=== PATIENT | female | born 1940 | race Caucasian/White ===

== ENCOUNTER → 2016-07-14 | Outpatient (CLI) | payer MEDICARE ==
[~2016-07-14] MED LIST: ASPI1TAB91 PO; ASPI81TA11 PO; ATOR40TA16 PO; CART120C PO; CENTTAB PO; CENTTAB9 PO; CLOP75TA PO; CO Q100C9 PO; COQ-100C5 OR; COQ1200C PO; DENO60P SC; DILT-60 PO; DILT120C49 PO; FLUT1SPR5 EACH NARE; HYDR-3533 PO; LIPI40TA PO; MULTTAB67 PO; NIAC500T5 PO; PANT40TA3 PO; PROT40TA PO; TYLE3 PO; ULTR50TA PO; ZOFR4TAB3 SL
[2016-07-14 13:52] LABS: HDL CHOLESTEROL 44.8 MG/DL (40.0-60.0); INDIRECT BILIRUBIN 0.3 MG/DL (0.0-0.8); TOTAL BILIRUBIN ADULT 0.4 MG/DL (0.2-1.0)
== END ==
LOC: PLAB 10:50
PROVIDERS: ATTEND Internal Medicine Interventional Cardiology
DX: E78.2 Mixed hyperlipidemia (principal); Z79.899 Other long term (current) drug therapy
CPT/HCPCS: 36415; 80061; 80076

== ENCOUNTER 2016-07-27 15:12 | Observation (INO) | payer MEDICARE ==
[~2016-07-27] VITALS: Ht 149.9 cm; Wt 56.0 kg
[~2016-07-27 15:12] MED LIST changes: -ASPI1TAB91 PO; -ATOR40TA16 PO; -CART120C PO; -CENTTAB PO; -CO Q100C9 PO; -COQ1200C PO; -DILT-60 PO; -FLUT1SPR5 EACH NARE; -MULTTAB67 PO; -NIAC500T5 PO; -PANT40TA3 PO
[2016-07-27 15:21] VITALS: BP 148/66; PULSE 89; RESP 21; TEMP 98; O2SAT 93
[2016-07-27] MEDS ORDERED: SODIUM CHLORID 0.9% 500 ML INJ 500 ML IV ONE (15:30)
[2016-07-27 15:35] VITALS: BP_SYST 118; BP_SYST 133; BP_DIAS 57; BP_DIAS 63
[2016-07-27 15:56] LABS: AUTOMATED NEUTROPHIL # 4.8 TH/MM3 (1.8-7.7); BASOPHIL # 0.1 TH/MM3 (0-0.2); EOSINOPHIL # 0.1 TH/MM3 (0-0.4); EOSINOPHIL % 1.4 % (0.0-4.0); HEMATOCRIT 38.3 % (35.0-46.0); HEMO FLAGS DIFF FINAL; LYMPHOCYTE # 1.3 TH/MM3 (1.0-4.8); MEAN CELL VOLUME 90.8 FL (80.0-100.0); MEAN CORPUSCULAR HEMOGLOBIN 29.8 PG (27.0-34.0); MEAN CORPUSCULAR HGB CONC 32.8 % (32.0-36.0); MONO % 7.3 % (0.0-8.0); NEUT % 71.3 % (16.0-70.0); PLATELET COUNT 197 TH/MM3 (150-450); RED BLOOD COUNT 4.21 MIL/MM3 (4.00-5.30); WHITE BLOOD COUNT 6.7 TH/MM3 (4.0-11.0)
[2016-07-27 16:00] VITALS: BP 130/61; PULSE 80; RESP 21; O2SAT 96
[2016-07-27 16:09] LABS: APTT (PATIENT) 27.3 SEC (24.3-30.1); INTERNATIONAL NORMALIZED RATIO 0.9 RATIO; PROTHROMBIN TIME - PATIENT 10.4 SEC (9.8-11.6)
--- NOTE | 2016-07-27 16:15 | PD ---
HPI Chief Complaint: Chest Pain Time Seen by Provider: 16:10 Travel History International Travel<30 days: No Contact w/Intl Traveler<30days: No Traveled to known affect area: No History of Present Illness HPI 76-year-old female that presents to the ED for evaluation of lower midsternal chest pain that she's had for a couple hours. Per patient she was doing yard work when he started. Per patient she follows with Dr. Ortiz for cardiology. Per patient she just saw her yesterday and everything came back normal. She has an appointment in 6 months from now. Per patient the pain started all of a sudden. Per patient he was sharp causing some shortness of breath. She states that she's never had pain like that before. She states that she took a nitroglycerin at home and this helped her pain but she started getting hypotensive. She called the ambulance on the dorsum fluids as well as Zofran and 2 other doses of nitroglycerin with relief of her symptoms. Now she feels is dizzy and somewhat lightheaded but the pain appears to have subsided. Per patient the pain wasn't constant but comes and goes. She does have a history of a stent placed in 2011. She denies any abdominal pain. No nausea or vomiting. Initially she told his mother be related to her gallbladder out that she's never had a bladder issues. She does take an aspirin. She does not take any blood thinners. She has no allergies to medication. She states that the pain was severe 7 out of 10. No radiation of the pain. PFSH Past Medical History Arthritis: Yes Blood Disorders: No Cancer: Yes (SKIN, BASAL CELL CA.) Cardiac Catheterization: Yes (MARCH 2012) Cardiovascular Problems: Yes (1 STENT) High Cholesterol: Yes Chemotherapy: No Coronary Artery Disease: Yes Diminished Hearing: Yes (BILATERAL HEARING AIDS) Endocrine: No GERD: Yes Genitourinary: No Hiatal Hernia: Yes Immune Disorder: No Implanted Vascular Access Dvce: Yes (STENT) Musculoskeletal: Yes (BACK PAIN) Neurologic: No Psychiatric: No Reproductive: No Respiratory: No Immunizations Current: Yes Radiation Therapy: No Influenza Vaccination: Yes ?: Not Menopausal: Yes : 5 Para: 4 : 1 Past Surgical History Body Medical Devices: breast impants Coronary Stent: Yes (Mar 2012) Gynecologic Surgery: Yes ( breast implants d and c) Joint Replacement: Yes (LEFT TOTAL HIP) Mastectomy: Yes (RIGHT BREAST LUMPECTOMY) Tonsillectomy: Yes Other Surgery: Yes (BREAST AUGMENTATION) Social History Alcohol Use: Yes (RARELY) Tobacco Use: No (QUIT 1996) Substance Use: No Allergies-Medications (Allergen,Severity, Reaction): Coded Allergies: No Known Allergies (Verified , 03/07/14) Reported Meds & Prescriptions Reported Meds & Active Scripts Active Reported Pantoprazole (Pantoprazole Sodium) 40 Mg Tab 40 Mg PO DAILY Centrum Silver (Multiple Vitamins W/ Minerals) 1 Tab 1 Tab PO DAILY Niacin 500 Mg Tab 500 Mg PO DAILY Flonase Nasal [place] (Fluticasone Nasal [place]) 50 Mcg/Act [place] 1 [place] EACH NARE DAILY PRN Diltiazem CD 24 HR 120 Mg Caper 120 Mg PO DAILY Coq10 (Coenzyme Q10 (Ubidecarenone)) 200 Mg Cap 200 Mg PO DAILY Atorvastatin (Atorvastatin Calcium) 40 Mg Tab 40 Mg PO HS Aspirin Adult Low Strength (Aspirin) 81 Mg Tabdr 162 Mg PO DAILY Review of Systems Except as stated in HPI: all other systems reviewed are Neg Physical Exam Narrative GENERAL: SKIN: Warm and dry. HEAD: Atraumatic. Normocephalic. EYES: Pupils equal and round. No scleral icterus. No injection or drainage. ENT: No nasal bleeding or discharge. Mucous membranes pink and moist. Tongue is midline. No uvula deviation. NECK: Trachea midline. No JVD. CARDIOVASCULAR: Regular rate and rhythm. No murmurs, S3, S4. RESPIRATORY: No accessory muscle use. Clear to auscultation. Breath sounds equal bilaterally. GASTROINTESTINAL: Abdomen soft, non-tender, nondistended. Hepatic and splenic margins not palpable. MUSCULOSKELETAL: Extremities without clubbing, cyanosis, or edema. No obvious deformities. Full range of motion of the upper and lower extremities bilaterally. 2+ pulses bilaterally. NEUROLOGICAL: Awake and alert. No obvious cranial nerve deficits. Motor grossly within normal limits. Five out of 5 muscle strength in the arms and legs. Normal speech. PSYCHIATRIC: Appropriate mood and affect; insight and judgment normal. Data Data Last Documented VS Vital Signs Date Time Temp Pulse Resp B/P Pulse Ox O2 Delivery O2 Flow Rate FiO2 07/27/16 15:35 133/63 118/57 07/27/16 15:21 98.0 89 21 93 Orders Electrocardiogram (07/27/16:29) Ckmb (Isoenzyme) Profile (07/27/16 15:29) Complete Blood Count With Diff (07/27/16:29) Comprehensive Metabolic Panel (07/27/16:) Magnesium (Mg) (07/27/16:29) Prothrombin Time / Inr (Pt) (07/27/16:29) Act Partial Throm Time (Ptt) (07/27/16:29) Troponin I (07/27/16:) Lipase (07/27/16:) Chest, Single Ap (07/27/16:) Ecg Monitoring (07/27/16:) Bilateral Bp Monitoring (07/27/16:) Iv Access Insert/Monitor (07/27/16:) Oximetry (07/27/16:) Oxygen Administration (07/27/16:) Sodium Chlorid 0.9% 500 Ml Inj (Ns 500 M (07/27/16 15:30) Admit Order (Ed Use Only) (07/27/16 17:11) Labs Laboratory Tests Test 07/27/16 15:45 White Blood Count 6.7 TH/MM3 Red Blood Count 4.21 MIL/MM3 Hemoglobin 12.5 GM/DL Hematocrit 38.3 % Mean Corpuscular Volume 90.8 FL Mean Corpuscular Hemoglobin 29.8 PG Mean Corpuscular Hemoglobin 32.8 % Concent Red Cell Distribution Width 15.0 % Platelet Count 197 TH/MM3 Mean Platelet Volume 7.4 FL Neutrophils (%) (Auto) 71.3 % Lymphocytes (%) (Auto) 19.0 % Monocytes (%) (Auto) 7.3 % Eosinophils (%) (Auto) 1.4 % Basophils (%) (Auto) 1.0 % Neutrophils # (Auto) 4.8 TH/MM3 Lymphocytes # (Auto) 1.3 TH/MM3 Monocytes # (Auto) 0.5 TH/MM3 Eosinophils # (Auto) 0.1 TH/MM3 Basophils # (Auto) 0.1 TH/MM3 CBC Comment DIFF FINAL Differential Comment Prothrombin Time 10.4 SEC Prothromb Time International 0.9 RATIO Ratio Activated Partial 27.3 SEC Thromboplast Time Sodium Level 143 MEQ/L Potassium Level 3.9 MEQ/L Chloride Level 108 MEQ/L Carbon Dioxide Level 27.4 MEQ/L Anion Gap 8 MEQ/L Blood Urea Nitrogen 11 MG/DL Creatinine 0.73 MG/DL Estimat Glomerular Filtration 77 ML/MIN Rate Random Glucose 102 MG/DL Calcium Level 8.2 MG/DL Magnesium Level 2.0 MG/DL Total Bilirubin 0.5 MG/DL Aspartate Amino Transf 90 U/L (AST/SGOT) Alanine Aminotransferase 53 U/L (ALT/SGPT) Alkaline Phosphatase 114 U/L Total Creatine Kinase 66 U/L Troponin I LESS THAN 0.02 NG/ML Total Protein 6.1 GM/DL Albumin 3.4 GM/DL Lipase 212 U/L MDM Medical Decision Making Medical Screen Exam Complete: Yes Emergency Medical Condition: Yes Medical Record Reviewed: Yes Interpretation(s) EKG shows sinus rhythm with no sign of acute ischemia or arrhythmia read by me and attending. Differential Diagnosis Chest pain versus atypical chest pain versus liver disease versus gallbladder issues versus ACS Narrative Course 76-year-old female that presents to the ED for evaluation of chest pain. Patient was properly examined and was found to have signs and symptoms concerning for chest pain. At this time labs and imaging recommended. Patient' s agreement with plan. Patient symptomatically at this time. Labs and imaging showed no sign of acute disease. At this time because of her risk factors including prior CAD we recommend admission to the Chest pain center. She agrees to this. patient was admitted to the chest pain center. Procedures EKG Prior to Arrival: No Diagnosis Primary Impression: Chest pain in adult Admitting Information Admitting Physician Requests: Observation Kameron Zambrano Jul 27, 2016 16:15 including prior CAD we recommend admission to the Chest pain center. Procedures EKG Prior to Arrival: No Diagnosis Primary Impression: Chest pain in adult Admitting Information Admitting Physician Requests: Observation Kameron Zambrano Jul 27, 2016 16:15
--- NOTE | 2016-07-27 16:17 | RADRPT ---
EXAM DATE/TIME: 07/27/2016 15:34 [facility] COMPARISON: No previous studies available for comparison. INDICATIONS : Chest pain today. MEDICAL HISTORY : None. SURGICAL HISTORY : cardiac stent 2011 ENCOUNTER: Initial ACUITY: 1 day PAIN SCORE: 8/10 LOCATION: Bilateral lower chest FINDINGS: A single view of the chest demonstrates the lungs to be symmetrically aerated without evidence of mas s, infiltrate or effusion. The cardiomediastinal contours are unremarkable. Mild curvature of the t horacolumbar spine convex towards the left. Bilateral breast implants are calcified. Gaseous disten tion of the stomach.. CONCLUSION: No infiltrates seen. No evidence of pleural effusion. Randal Saab MD on July 27, 2016 at 16:14 Board Certified Radiologist. This report was verified electronically.
[2016-07-27 16:28] LABS: ALT (GPT) 53 U/L (10-53); ANION GAP 8 MEQ/L (5-15); AST (GOT) 90 U/L (15-37); BICARBONATE 27.4 MEQ/L (21.0-32.0); BLOOD UREA NITROGEN 11 MG/DL (7-18); CHLORIDE 108 MEQ/L (98-107); GLOMERULAR FILTRATION RATE 77 ML/MIN (>89); POTASSIUM 3.9 MEQ/L (3.5-5.1); SODIUM (NA) 143 MEQ/L (136-145)
[2016-07-27 16:31] LABS: ALKALINE PHOSPHATASE 114 U/L (45-117); TOTAL BILIRUBIN ADULT 0.5 MG/DL (0.2-1.0)
[2016-07-27] MEDS ORDERED: NIAC500T5 PO (16:37)
[2016-07-27] MEDS ORDERED: PANT40TA3 PO (16:37)
[2016-07-27] MEDS ORDERED: DILT-60 PO (16:37)
[2016-07-27] MEDS ORDERED: ATOR40TA16 PO (16:37)
[2016-07-27] MEDS ORDERED: COQ1200C PO (16:37)
[2016-07-27] MEDS ORDERED: CENTTAB PO (16:37)
[2016-07-27] MEDS ORDERED: ASPI1TAB91 PO (16:37)
[2016-07-27] MEDS ORDERED: FLUT1SPR5 EACH NARE (16:37)
[2016-07-27 16:46] LABS: CREATINE KINASE 66 U/L (26-192)
[2016-07-27] MEDS ORDERED: SODIUM CHLORIDE 0.9% FLUSH 10 ML FLUSH IV FLUSH PRN (17:15)
[2016-07-27 18:57] LABS: CREATINE KINASE 66 U/L (26-192)
[2016-07-27] MEDS: SODIUM CHLORIDE 0.9% FLUSH 10 ML FLUSH IV FLUSH SCH (22:02)
[2016-07-27 22:45] LABS: CREATINE KINASE 63 U/L (26-192)
[2016-07-28 00:07] VITALS: BP 134/64; PULSE 75; RESP 18; TEMP 95.8; O2SAT 96
[2016-07-28 04:04] VITALS: BP 128/60; PULSE 55; RESP 20; TEMP 98.6
[2016-07-28 06:09] VITALS: PULSE 77
[2016-07-28 08:08] VITALS: BP 165/74; PULSE 66; RESP 18; TEMP 96.9; O2SAT 97
[2016-07-28] MEDS ORDERED: MULTIVITAMINS/MINERALS THERAPEUTIC TAB PO SCH (09:00)
[2016-07-28] MEDS ORDERED: ASPIRIN EC 81 MG TABEC PO SCH (09:00)
[2016-07-28] MEDS ORDERED: PANTOPRAZOLE SOD 40 MG DELAYED RELEASE TAB PO SCH (09:00)
[2016-07-28] MEDS ORDERED: DILTIAZEM-CD 120 MG CAP ER PO SCH (09:00)
[2016-07-28] MEDS: NIACIN 500 MG EXTENDED RELEASE TAB PO SCH ×2 (09:00→09:57)
[2016-07-28 09:06] VITALS: PULSE 70
--- NOTE | 2016-07-28 09:14 | HHI.HP ---
[facility] Primary Care Physician Lay Gibson MD Chief Complaint Chest pain History of Present Illness This is a 76-year-old female with history of CAD with history of stenting of the mid LAD and angioplasty of ostium diagonal branch [place] [address] Wilkinson. She presents with a complaint of chest discomfort that began yesterday afternoon. She points to the epigastric region. She states it was a dull discomfort. She thought it may be related to her heart initially and took a nitroglycerin. She then began to feel nauseous and faint and checked her blood pressure found her blood pressure with a systolic of 77. At that point she became more concerned and called 911. Upon arrival they gave IV fluids and more nitroglycerin and she felt better. The discomfort lasted about an hour. She states that this does not feel similar symptoms which needed a stent in 2012. With that episode she was having discomfort in her left arm whenever she exerted herself. The symptoms have not recurred since her stenting. She saw her knockdown worker 2 days ago for a checkup and is scheduled for a stress test in 6 months. She believes her last stress test was about a year and a half ago. Denies recent illnesses. Denies fevers or chills. Review of Systems General: Patient denies fevers, chills recent, and recent travel HEENT: Patient denies headache, sore throat, difficulty swallowing. Cardiovascular: Has the chest discomfort as mentioned above. Denies sensation of heart beating rapidly or irregularly. No syncope. Denies diaphoresis. Respiratory: Denies shortness of breath or inspirational chest discomfort. Denies coughing wheezing or hemoptysis. GI: When she discusses her chest discomfort she points to the epigastric region. Patient denies nausea, vomiting, diarrhea, and bloody stools. Musculoskeletal: She complains of left shoulder discomfort that she is having some time. She attributes this to perform rotator cuff. Denies swelling in the joints. Denies calf pain or edema. Neurovascular: Patient denies numbness, tingling, weakness in extremities. Denies headache. Endocrine: Denies polyuria and polydipsia. Hematologic: Denies easy bruising. Skin: Denies rash or itching. Past Family Social History Allergies: Coded Allergies: No Known Allergies (Verified , 03/07/14) Past Medical History CAD with stenting and angioplasty in [address]. Elsakr. Hyperlipidemia, hypertension, GERD. Denies diabetes. Past Surgical History Heart catheterization with stenting and angioplasty in 2012. Right breast lumpectomy, breast augmentation, tonsillectomy, total left hip. Reported Medications Reported Meds & Active Scripts Active Reported Pantoprazole (Pantoprazole Sodium) 40 Mg Tab 40 Mg PO DAILY Centrum Silver (Multiple Vitamins W/ Minerals) 1 Tab 1 Tab PO DAILY Niacin 500 Mg Tab 500 Mg PO DAILY Flonase Nasal [place] (Fluticasone Nasal [place]) 50 Mcg/Act [place] 1 [place] EACH NARE DAILY PRN Diltiazem CD 24 HR 120 Mg Caper 120 Mg PO DAILY Coq10 (Coenzyme Q10 (Ubidecarenone)) 200 Mg Cap 200 Mg PO DAILY Atorvastatin (Atorvastatin Calcium) 40 Mg Tab 40 Mg PO HS Aspirin Adult Low Strength (Aspirin) 81 Mg Tabdr 162 Mg PO DAILY Active Ordered Medications Current Medications Medications (Trade) Dose Ordered Sig/[place] Route Start Time Stop Time Status Last Admin (NS Flush) 2 ml UNSCH PRN IV FLUSH 07/27/16 17:15 (NS Flush) 2 ml BID IV FLUSH 07/27/16 21:00 07/27/16 22:02 (Lipitor) 40 mg HS PO 07/28/16 21:00 (Cardizem Cd) 120 mg DAILY PO 07/28/16 09:00 (Protonix) 40 mg DAILY PO 07/28/16 09:00 (Theragran M Tab) 1 tab DAILY PO 07/28/16 09:00 (Slo-Niacin) 500 mg DAILY PO 07/28/16 09:00 (Ecotrin Ec) 162 mg DAILY PO 07/28/16 09:00 Family History There is family history of CAD. Social History Patient does not smoke, drink alcohol, or use illicit drugs. Physical Exam Vital Signs Vital Signs Date Time Temp Pulse Resp B/P Pulse Ox O2 Delivery O2 Flow Rate FiO2 07/28/16 08:08 96.9 66 18 165/74 97 07/28/16 06:09 77 07/28/16 04:04 98.6 55 20 128/60 07/28/16 03:18 21 07/28/16 00:07 95.8 75 18 134/64 96 07/27/16 16:00 80 21 130/61 96 Room Air 07/27/16 15:35 133/63 118/57 07/27/16 15:21 98.0 89 21 148/66 93 Physical Exam GENERAL: This is a well-nourished, well-developed patient, in no apparent distress. Patient speaks in clear complete sentences. Patient is pleasant. HEENT: Head is atraumatic and normocephalic. Neck is supple without lymphadenopathy and trachea is midline. No JVD or carotid bruits. CARDIOVASCULAR: Regular rate and rhythm without murmurs, gallops, or rubs. RESPIRATORY: Clear to auscultation. Breath sounds equal bilaterally. No wheezes , rales, or rhonchi. Chest wall is nontender. No use of accessory muscles. GASTROINTESTINAL: Abdomen is nontender, nondistended. Abdomen soft. No obvious pulsatile mass or bruit. No CVA tenderness. Strong femoral pulses bilaterally. Normal bowel sounds in all quadrants. MUSCULOSKELETAL: Patient is moving upper and lower extremities freely. No calf tenderness or edema, no Homans sign. Strong pulses in upper and lower extremities. NEUROLOGICAL: Patient is alert and oriented. Cranial nerves 2-12 are grossly intact. No focal deficits and speech is clear. SKIN: No rash and turgor is normal. Laboratory Laboratory Tests Test 07/27/16 07/27/16 07/27/16 15:45 18:26 22:00 White Blood Count 6.7 Red Blood Count 4.21 Hemoglobin 12.5 Hematocrit 38.3 Mean Corpuscular Volume 90.8 Mean Corpuscular Hemoglobin 29.8 Mean Corpuscular Hemoglobin 32.8 Concent Red Cell Distribution Width 15.0 Platelet Count 197 Mean Platelet Volume 7.4 Neutrophils (%) (Auto) 71.3 Lymphocytes (%) (Auto) 19.0 Monocytes (%) (Auto) 7.3 Eosinophils (%) (Auto) 1.4 Basophils (%) (Auto) 1.0 Neutrophils # (Auto) 4.8 Lymphocytes # (Auto) 1.3 Monocytes # (Auto) 0.5 Eosinophils # (Auto) 0.1 Basophils # (Auto) 0.1 CBC Comment DIFF FINAL Differential Comment Prothrombin Time 10.4 Prothromb Time International 0.9 Ratio Activated Partial 27.3 Thromboplast Time Sodium Level 143 Potassium Level 3.9 Chloride Level 108 Carbon Dioxide Level 27.4 Anion Gap 8 Blood Urea Nitrogen 11 Creatinine 0.73 Estimat Glomerular Filtration 77 Rate Random Glucose 102 Calcium Level 8.2 Magnesium Level 2.0 Total Bilirubin 0.5 Aspartate Amino Transf 90 (AST/SGOT) Alanine Aminotransferase 53 (ALT/SGPT) Alkaline Phosphatase 114 Total Creatine Kinase 66 66 63 Troponin I LESS THAN 0.02 LESS THAN 0.02 LESS THAN 0.02 Total Protein 6.1 Albumin 3.4 Lipase 212 Result Diagram: 07/27/16 1545 07/27/16 1545 Imaging Last 24 hours Impressions Chest X-Ray 07/27/16 1529 Signed Impressions: Service Date/Time: Wednesday, July 27, 2016 15:34 - CONCLUSION: No infiltrates seen. No evidence of pleural effusion. Randal Saab MD Course EKGs have sinus rhythm without significant ST segment depressions or elevations. Assessment and Plan Assessment and Plan * Chest pain: Patient has had serial cardiac enzymes and EKGs for ruling out purposes and will be evaluated by Dr. Coley of cardiology in the chest pain center. Also discussed the patient with her knockdown worker Dr. Wilkinson. He has requested that the may be discharged and he will follow her in the office. * CAD: Patient had serial cardiac enzymes and EKGs for ruling out purposes and will follow up with her knockdown worker. * Hypertension: Continue current medications. * Hyperlipidemia: Continue current medications. * GERD: Continue current medications. Patient is stable this time. She is agreeable to this plan. Theo Hamlin Jul 28, 2016 09:13
[2016-07-28] MEDS: SODIUM CHLORIDE 0.9% FLUSH 10 ML FLUSH IV FLUSH SCH (09:58)
--- NOTE | 2016-07-28 11:25 | EKG ---
Date Performed: 07/28/2016 Time Performed: 00:44:44 PTAGE: 76 years EKG: Sinus rhythm WITH OCCASIONAL SUPRAVENTRICULAR PREMATURE COMPLEXES LOW QRS VOLTAGE IN PRECORDIAL LEADS POSSIBLE RI GHT VENTRICULAR CONDUCTION DELAY BORDERLINE ECG INTERPRETATION BASED ON A DEFAULT AGE OF 39 YEARS NO PREVIOUS TRACING DOCTOR: Diaz Coley Interpretating Date/Time 07/28/2016 11:23:12
--- NOTE | 2016-07-28 11:25 | EKG ---
Date Performed: 07/27/2016 Time Performed: 21:53:10 PTAGE: 76 years EKG: Sinus rhythm POSSIBLE RIGHT VENTRICULAR CONDUCTION DELAY BORDERLINE ECG Left axis deviation PREVIOUS TRACING : 07/27/2016 18.28 Since previous tracing, no significant change noted DOCTOR: Diaz Coley Interpretating Date/Time 07/28/2016 11:25:07
--- NOTE | 2016-07-28 12:04 | HHI.DCPOC ---
Discharge Care Plan Diagnosis: (1) Chest pain (2) CAD (coronary artery disease) (3) H/O heart artery stent (4) Hypertension (5) Hyperlipidemia (6) GERD (gastroesophageal reflux disease) Goals to Promote Your Health * To prevent worsening of your condition and complications * To maintain your health at the optimal level Directions to Meet Your Goals Take your medications as prescribed Follow your dietary instruction Follow activity as directed Keep your appointments as scheduled Take your immunizations and boosters as scheduled If your symptoms worsen call your PCP, if no PCP go to Urgent Care Center or Emergency Room Smoking is Dangerous to Your Health. Avoid second hand smoke Call the 24-hour hour crisis hotline for domestic abuse at Theo Hamlin Jul 28, 2016 12:04
--- NOTE | 2016-07-28 13:07 | EKG ---
Date Performed: 07/27/2016 Time Performed: 18:28:22 PTAGE: 76 years EKG: Sinus rhythm BORDERLINE LEFT AXIS DEVIATION POSSIBLE RIGHT VENTRICULAR CONDUCTION DELAY BORDERLINE ECG PREVIOUS TRACING : 07/27/2016 15.29 Since previous tracing, no significant change noted DOCTOR: Diaz Coley Interpretating Date/Time 07/28/2016 13:06:25
--- NOTE | 2016-07-28 13:09 | EKG ---
Date Performed: 07/27/2016 Time Performed: 15:29:50 PTAGE: 76 years EKG: Sinus rhythm POSSIBLE RIGHT VENTRICULAR CONDUCTION DELAY BORDERLINE ECG PREVIOUS TRACING : 09/04/2013 15.36 Since previous tracing, no significant change noted DOCTOR: Diaz Coley Interpretating Date/Time 07/28/2016 13:08:28
[2016-07-28] MEDS ORDERED: ATORVASTATIN 40 MG TAB PO SCH (21:00)
== END 2016-07-28 12:50 | disposition home or self-care (01) ==
LOC: NEPC 15:12 → NEDA 17:13 → NEPHCDU 19:04
PROVIDERS: ADMIT Internal Medicine Cardiovascular Disease; ATTEND Internal Medicine Cardiovascular Disease
DX: R07.9 Chest pain, unspecified (principal); I25.10 Atherosclerotic heart disease of native coronary artery without angina pectoris; I10 Essential (primary) hypertension; E78.5 Hyperlipidemia, unspecified; K21.9 Gastro-esophageal reflux disease without esophagitis; R06.02 Shortness of breath; R42 Dizziness and giddiness; M19.90 Unspecified osteoarthritis, unspecified site; Z85.828 Personal history of other malignant neoplasm of skin; E78.00 Pure hypercholesterolemia, unspecified; K44.9 Diaphragmatic hernia without obstruction or gangrene; M54.9 Dorsalgia, unspecified; Z79.899 Other long term (current) drug therapy; Z95.5 Presence of coronary angioplasty implant and graft; R94.31 Abnormal electrocardiogram [ECG] [EKG]
CPT/HCPCS: 71010; 80053; 82550; 83690; 83735; 84484; 85025; 85610; 85730; 93005; 96374; 99285; G0378; J7040

== ENCOUNTER 2016-09-06 15:41 | Emergency (ER) | payer MEDICARE ==
[~2016-09-06] VITALS: Ht 154.9 cm; Wt 58.0 kg
[~2016-09-06 15:41] MED LIST changes: +ASPI1TAB91 PO; -ASPI81TA11 PO; +ATOR40TA16 PO; +CENTTAB PO; -CENTTAB9 PO; -CLOP75TA PO; -COQ-100C5 OR; +COQ1200C PO; -DENO60P SC; +DILT-60 PO; -DILT120C49 PO; +FLUT1SPR5 EACH NARE; -HYDR-3533 PO; -LIPI40TA PO; +NIAC500T5 PO; +PANT40TA3 PO; -PROT40TA PO; -TYLE3 PO; -ULTR50TA PO; -ZOFR4TAB3 SL
[2016-09-06 15:45] VITALS: BP 122/63; PULSE 78; RESP 16; TEMP 97.8; O2SAT 96
[2016-09-06] MEDS ORDERED: CART120C PO (16:11)
[2016-09-06] MEDS ORDERED: MULTTAB67 PO (16:11)
[2016-09-06] MEDS ORDERED: CO Q100C9 PO (16:11)
[2016-09-06] MEDS ORDERED: PROT40TA PO (16:11)
[2016-09-06] MEDS ORDERED: SODIUM CHLOR 0.9% 1000 ML INJ 1,000 ML IV SCH (16:24)
[2016-09-06] MEDS ORDERED: ONDANSETRON HCL 4 MG/2 ML VIAL IVP ONE (16:30)
[2016-09-06] MEDS ORDERED: SODIUM CHLORIDE 0.9% FLUSH 10 ML FLUSH IV FLUSH PRN (16:30)
[2016-09-06 16:40] VITALS: O2SAT 95
[2016-09-06 16:55] LABS: AUTOMATED NEUTROPHIL # 4.8 TH/MM3 (1.8-7.7); BASOPHIL # 0.1 TH/MM3 (0-0.2); EOSINOPHIL # 0.1 TH/MM3 (0-0.4); EOSINOPHIL % 1.5 % (0.0-4.0); HEMATOCRIT 40.2 % (35.0-46.0); HEMO FLAGS DIFF FINAL; LYMPHOCYTE # 1.5 TH/MM3 (1.0-4.8); MEAN CELL VOLUME 90.8 FL (80.0-100.0); MEAN CORPUSCULAR HEMOGLOBIN 30.3 PG (27.0-34.0); MEAN CORPUSCULAR HGB CONC 33.3 % (32.0-36.0); NEUT % 68.5 % (16.0-70.0); PLATELET COUNT 268 TH/MM3 (150-450); RED BLOOD COUNT 4.42 MIL/MM3 (4.00-5.30); RED CELL DISTRIBUTION WIDTH 13.7 % (11.6-17.2); WHITE BLOOD COUNT 7.1 TH/MM3 (4.0-11.0)
[2016-09-06 17:02] LABS: BLOOD, URINE NEG (NEG); GLUCOSE,URINE NEG (NEG); KETONE, URINE NEG (NEG); NITRITE,URINE NEG (NEG)
[2016-09-06 17:06] LABS: URINE COLOR STRAW (YELLW/STRAW)
[2016-09-06 17:07] LABS: COMMENT (UR) CULT NOT INDICATED; CULTURE IF INDICATED CULT NOT INDICATED; RBC, URINE 0-3 /hpf (0-3); SQUAMOUS EPITHELIAL CELL URINE 0-5 /hpf (0-5)
[2016-09-06 17:09] LABS: INTERNATIONAL NORMALIZED RATIO 0.9 RATIO; PROTHROMBIN TIME - PATIENT 10.1 SEC (9.8-11.6)
--- NOTE | 2016-09-06 17:16 | PD ---
HPI Chief Complaint: GI Complaint Time Seen by Provider: 16:26 Travel History International Travel<30 days: No Contact w/Intl Traveler<30days: No Traveled to known affect area: No History of Present Illness HPI Patient is a 76-year-old female who presents to emergency room with multiple complaints. Patient reports that she has not been feeling well for the past 3 weeks, reports that she has been having abdominal pain and cramping, she has been feeling constipated but has been having bowel movements. Reports that sometimes when she eats a meal, she has nausea right after. Reports no emesis. Reports that she felt constipated but did have 2 bowel movements today, reports that she feels overall generalized weakness. Patient denies any chest pain or shortness of breath at this time. Patient denies any dysuria, urinary urgency or frequency. Patient with no fevers or chills. Patient reports that she is not sure what is wrong with her but "I just don't feel good." PFSH Past Medical History Arthritis: Yes Blood Disorders: No Heart Rhythm Problems: Yes Cancer: Yes (SKIN, BASAL CELL CA.) Cardiac Catheterization: Yes (2011) Cardiovascular Problems: Yes (STENT PLACED 2011 ) High Cholesterol: Yes Chemotherapy: No Congestive Heart Failure: No Coronary Artery Disease: Yes Diabetes: No Diminished Hearing: Yes (BILATERAL HEARING AIDS) Endocrine: No GERD: Yes Genitourinary: No Hiatal Hernia: Yes Immune Disorder: No Implanted Vascular Access Dvce: Yes (STENT) Musculoskeletal: Yes (BACK PAIN) Neurologic: No Psychiatric: No Reproductive: No Respiratory: No Immunizations Current: Yes Radiation Therapy: No Menopausal: Yes : 5 Para: 4 : 1 Past Surgical History Body Medical Devices: breast impants Coronary Artery Bypass Graft: No Coronary Stent: Yes (X1 MAR 2012) Gynecologic Surgery: Yes ( breast implants d and c) Joint Replacement: Yes (LEFT TOTAL HIP) Mastectomy: Yes (RIGHT BREAST LUMPECTOMY) Tonsillectomy: Yes Other Surgery: Yes (BREAST AUGMENTATION) Social History Alcohol Use: Yes (RARELY) Tobacco Use: No (QUIT 1996) Substance Use: No Allergies-Medications (Allergen,Severity, Reaction): Coded Allergies: No Known Allergies (Verified , 09/06/16) Reported Meds & Prescriptions Reported Meds & Active Scripts Active Reported Co Q 10 (Coenzyme Q10 (Ubidecarenone)) 100 Mg Cap 200 Mg PO DAILY Multiple Vitamin 1 Tab 1 Tab PO DAILY Cartia Xt (Diltiazem ER 24 HR) 120 Mg Caper 120 Mg PO DAILY Protonix (Pantoprazole Sodium) 40 Mg Tab 40 Mg PO DAILY Niacin 500 Mg Tab 200 Mg PO DAILY Atorvastatin (Atorvastatin Calcium) 40 Mg Tab 40 Mg PO HS Aspirin Adult Low Strength (Aspirin) 81 Mg Tabdr 81 Mg PO DAILY Review of Systems General / Constitutional: No: Fever Eyes: No: Visual changes HENT: No: Headaches Cardiovascular: No: Chest Pain or Discomfort Respiratory: No: Shortness of Breath Gastrointestinal: Positive: Nausea, Vomiting, Diarrhea, Abdominal Pain Genitourinary: No: Dysuria Musculoskeletal: No: Pain Skin: No Rash Neurologic: No: Weakness Psychiatric: No: Depression Endocrine: No: Polydipsia Hematologic/Lymphatic: No: Easy Bruising Physical Exam Narrative GENERAL: nad, nontoxic SKIN: Focused skin assessment warm/dry. HEAD: Atraumatic. Normocephalic. EYES: Pupils equal and round. No scleral icterus. No injection or drainage. ENT: No nasal bleeding or discharge. Mucous membranes pink and moist. NECK: Trachea midline. No JVD. CARDIOVASCULAR: Regular rate and rhythm. No murmur appreciated. RESPIRATORY: No accessory muscle use. Clear to auscultation. Breath sounds equal bilaterally. GASTROINTESTINAL: Abdomen soft, non-tender, nondistended. Hepatic and splenic margins not palpable. MUSCULOSKELETAL: No obvious deformities. No clubbing. No cyanosis. No edema. NEUROLOGICAL: Awake and alert. No obvious cranial nerve deficits. Motor grossly within normal limits. Normal speech. PSYCHIATRIC: Appropriate mood and affect; insight and judgment normal. Data Data Last Documented VS Vital Signs Date Time Temp Pulse Resp B/P Pulse Ox O2 Delivery O2 Flow Rate FiO2 09/06/16 16:40 95 09/06/16 15:45 97.8 78 16 122/63 Orders Complete Blood Count With Diff (09/06/16 16:24) Comprehensive Metabolic Panel (09/06/16 16:24) Lipase (09/06/16 16:24) Prothrombin Time / Inr (Pt) (09/06/16 16:24) Act Partial Throm Time (Ptt) (09/06/16 16:24) Urinalysis - C+S If Indicated (09/06/16 16:24) Iv Access Insert/Monitor (09/06/16 16:24) Ecg Monitoring (09/06/16 16:24) Oximetry (09/06/16 16:24) NPO (09/06/16 16:24) Ondansetron Inj (Zofran Inj) (09/06/16 16:30) Sodium Chlor 0.9% 1000 Ml Inj (Ns 1000 M (09/06/16 16:24) Sodium Chloride 0.9% Flush (Ns Flush) (09/06/16 16:30) Electrocardiogram (09/06/16 ) Ct Abd/Pel W/O Iv Contrast (09/06/16 16:56) Labs Laboratory Tests Test 09/06/16 09/06/16 16:40 16:50 White Blood Count 7.1 TH/MM3 Red Blood Count 4.42 MIL/MM3 Hemoglobin 13.4 GM/DL Hematocrit 40.2 % Mean Corpuscular Volume 90.8 FL Mean Corpuscular Hemoglobin 30.3 PG Mean Corpuscular Hemoglobin 33.3 % Concent Red Cell Distribution Width 13.7 % Platelet Count 268 TH/MM3 Mean Platelet Volume 7.0 FL Neutrophils (%) (Auto) 68.5 % Lymphocytes (%) (Auto) 21.0 % Monocytes (%) (Auto) 8.0 % Eosinophils (%) (Auto) 1.5 % Basophils (%) (Auto) 1.0 % Neutrophils # (Auto) 4.8 TH/MM3 Lymphocytes # (Auto) 1.5 TH/MM3 Monocytes # (Auto) 0.6 TH/MM3 Eosinophils # (Auto) 0.1 TH/MM3 Basophils # (Auto) 0.1 TH/MM3 CBC Comment DIFF FINAL Differential Comment Prothrombin Time 10.1 SEC Prothromb Time International 0.9 RATIO Ratio Activated Partial 28.0 SEC Thromboplast Time Sodium Level 140 MEQ/L Potassium Level 4.1 MEQ/L Chloride Level 105 MEQ/L Carbon Dioxide Level 29.2 MEQ/L Anion Gap 6 MEQ/L Blood Urea Nitrogen 12 MG/DL Creatinine 0.73 MG/DL Estimat Glomerular Filtration 77 ML/MIN Rate Random Glucose 105 MG/DL Calcium Level 8.5 MG/DL Total Bilirubin 0.3 MG/DL Aspartate Amino Transf 16 U/L (AST/SGOT) Alanine Aminotransferase 25 U/L (ALT/SGPT) Alkaline Phosphatase 80 U/L Total Protein 6.5 GM/DL Albumin 3.3 GM/DL Lipase 197 U/L Urine Color STRAW Urine Turbidity CLEAR Urine pH 6.0 Urine Specific [place] 1.004 Urine Protein NEG mg/dL Urine Glucose (UA) NEG mg/dL Urine Ketones NEG mg/dL Urine Occult Blood NEG Urine Nitrite NEG Urine Bilirubin NEG Urine Leukocyte Esterase NEG Urine RBC 0-3 /hpf Urine Squamous Epithelial 0-5 /hpf Cells Microscopic Urinalysis Comment CULT NOT INDICATED MDM Medical Decision Making Medical Screen Exam Complete: Yes Emergency Medical Condition: Yes Interpretation(s) EKG at 1634: NSR at 69bpm, qt/qtc: 378/393, no acute st or t wave changes Vital Signs Date Time Temp Pulse Resp B/P Pulse Ox O2 Delivery O2 Flow Rate FiO2 09/06/16 16:40 95 09/06/16 15:45 97.8 78 16 122/63 96 Differential Diagnosis Gastroenteritis, coronary disease, ACS, electrolyte abnormality, constipation, small obstruction, UTI, colitis Narrative Course Patient is a 76-year-old female who presents to emergency room with complaints of abdominal pain. Patient reports intermittent abdominal pain for the past 3 weeks with associated nausea and constipation. Patient reports that she did have 2 bowel movement today, reports "i just feel weak." Overall, patient is nontoxic and evaluation. EKG obtained, patient with no acute ST-T wave changes. Plan to obtain lab work and obtain CT of the abdomen and pelvis. Laboratory Tests Test 09/06/16 09/06/16 16:40 16:50 White Blood Count 7.1 TH/MM3 (4.0-11.0) Red Blood Count 4.42 MIL/MM3 (4.00-5.30) Hemoglobin 13.4 GM/DL (11.6-15.3) Hematocrit 40.2 % (35.0-46.0) Mean Corpuscular Volume 90.8 FL (80.0-100.0) Mean Corpuscular Hemoglobin 30.3 PG (27.0-34.0) Mean Corpuscular Hemoglobin 33.3 % Concent (32.0-36.0) Red Cell Distribution Width 13.7 % (11.6-17.2) Platelet Count 268 TH/MM3 (150-450) Mean Platelet Volume 7.0 FL (7.0-11.0) Neutrophils (%) (Auto) 68.5 % (16.0-70.0) Lymphocytes (%) (Auto) 21.0 % (9.0-44.0) Monocytes (%) (Auto) 8.0 % (0.0-8.0) Eosinophils (%) (Auto) 1.5 % (0.0-4.0) Basophils (%) (Auto) 1.0 % (0.0-2.0) Neutrophils # (Auto) 4.8 TH/MM3 (1.8-7.7) Lymphocytes # (Auto) 1.5 TH/MM3 (1.0-4.8) Monocytes # (Auto) 0.6 TH/MM3 (0-0.9) Eosinophils # (Auto) 0.1 TH/MM3 (0-0.4) Basophils # (Auto) 0.1 TH/MM3 (0-0.2) CBC Comment DIFF FINAL Differential Comment Prothrombin Time 10.1 SEC (9.8-11.6) Prothromb Time International 0.9 RATIO Ratio Activated Partial 28.0 SEC Thromboplast Time (24.3-30.1) Sodium Level 140 MEQ/L (136-145) Potassium Level 4.1 MEQ/L (3.5-5.1) Chloride Level 105 MEQ/L (98-107) Carbon Dioxide Level 29.2 MEQ/L (21.0-32.0) Anion Gap 6 MEQ/L (5-15) Blood Urea Nitrogen 12 MG/DL (7-18) Creatinine 0.73 MG/DL (0.50-1.00) Estimat Glomerular Filtration 77 ML/MIN (>89) Rate Random Glucose 105 MG/DL (74-106) Calcium Level 8.5 MG/DL (8.5-10.1) Total Bilirubin 0.3 MG/DL (0.2-1.0) Aspartate Amino Transf 16 U/L (15-37) (AST/SGOT) Alanine Aminotransferase 25 U/L (10-53) (ALT/SGPT) Alkaline Phosphatase 80 U/L (45-117) Total Protein 6.5 GM/DL (6.4-8.2) Albumin 3.3 GM/DL (3.4-5.0) Lipase 197 U/L (73-393) Urine Color STRAW (YELLW/STRAW) Urine Turbidity CLEAR (CLEAR) Urine pH 6.0 (5.0-8.5) Urine Specific Kent 1.004 (1.002-1.035) Urine Protein NEG mg/dL (NEG-TRACE) Urine Glucose (UA) NEG mg/dL (NEG) Urine Ketones NEG mg/dL (NEG) Urine Occult Blood NEG (NEG) Urine Nitrite NEG (NEG) Urine Bilirubin NEG (NEG) Urine Leukocyte Esterase NEG (NEG) Urine RBC 0-3 /hpf (0-3) Urine Squamous Epithelial 0-5 /hpf (0-5) Cells Microscopic Urinalysis Comment CULT NOT INDICATED Last Impressions Abdomen/Pelvis CT 09/06/16 1656 Signed Impressions: Service Date/Time: Tuesday, September 06, 2016 17:27 - CONCLUSION: 1. Gallstones in the gallbladder. No biliary tract obstruction. 2. Probable hepatic cysts. 3. Diverticulosis without inflammatory changes. Otherwise, the bowel gas pattern is unremarkable. Genaro Mckoy MD cbc: wnl bmp: wnl coags: wnl UA: neg nitrite, negative for leuk esterase, no signs of infection CT of the abdomen and pelvis shows no acute changes. There are gallstones in the gallbladder, no biliary tract obstruction, probable hepatic cysts, diverticulosis without any inflammatory changes, I did give patient a copy of her CAT scan report as she will need to follow-up with her primary care doctor for follow up and workup of all incidental findings. Patient with nonspecific complaints while in the emergency room. Patient does not suffer any emergency that requires admission to the hospital or any further workup. Discussed need for her to follow up with her primary care doctor and will have her return to emergency room as needed. I did symptoms of when to return to the emergency room was reviewed patient in detail. Patient stable to be discharged to home with outpatient followup Diagnosis Primary Impression: Generalized weakness Additional Impressions: Abdominal pain Liver lesion, right lobe Diverticulosis Patient Instructions: General Instructions Additional Instructions: Please follow-up with a primary care doctor in 1-2 days Return to the emergency with symptoms worsen or progress and return Return to the emergency room as needed Please bring a copy of your studies to doctor's office for follow-up on all incidental findings from today Disposition: 01 DISCHARGE HOME Condition: Stable Tamie Khalil DO September 06, 2016 17:16
[2016-09-06 17:19] LABS: CHLORIDE 105 MEQ/L (98-107); POTASSIUM 4.1 MEQ/L (3.5-5.1); SODIUM (NA) 140 MEQ/L (136-145)
[2016-09-06 17:33] LABS: ALT (GPT) 25 U/L (10-53); ANION GAP 6 MEQ/L (5-15); AST (GOT) 16 U/L (15-37); BICARBONATE 29.2 MEQ/L (21.0-32.0); BLOOD UREA NITROGEN 12 MG/DL (7-18)
[2016-09-06 17:35] LABS: GLOMERULAR FILTRATION RATE 77 ML/MIN (>89); TOTAL BILIRUBIN ADULT 0.3 MG/DL (0.2-1.0)
[2016-09-06 17:36] LABS: ALKALINE PHOSPHATASE 80 U/L (45-117)
--- NOTE | 2016-09-06 17:59 | RADHPO ---
EXAM DATE/TIME: 09/06/2016 17:27 [facility] COMPARISON: No previous studies available for comparison. INDICATIONS : Nausea and abdominal distention. ORAL CONTRAST: No oral contrast ingested. RADIATION DOSE: CTDIvol (mGy) MEDICAL HISTORY : Cardiovascular disease. SURGICAL HISTORY : Coronary artery stent. Right breast lumpectomy. ENCOUNTER: Initial ACUITY: 3 days PAIN SCALE: 0/10 LOCATION: abdomen TECHNIQUE: Volumetric scanning of the abdomen and pelvis was performed. Using automated exposure control and ad justment of the mA and/or kV according to patient size, radiation dose was kept as low as reasonably achievable to obtain optimal diagnostic quality images. The lack of IV contrast limits the diagnosis for certain organ pathology. FINDINGS: LOWER LUNGS: The visualized lower lungs are clear. LIVER: There are 2 low-density lesions in the right lobe liver. These are probable hepatic cysts. The larges t measures 1.4 cm. No dilated biliary ducts. There are gallstones in the gallbladder without surroun ding inflammatory changes. SPLEEN: Normal size without lesion. Few splenic granulomas. PANCREAS: Within normal limits. KIDNEYS: Normal in size and shape. There is no mass, stone, or hydronephrosis. ADRENAL GLANDS: Within normal limits. VASCULAR: There is no aortic aneurysm. BOWEL/MESENTERY: The stomach, small bowel, and colon demonstrate no acute abnormality. There is no free intraperitone al air or fluid. Scattered diverticulosis of the descending and sigmoid colon without inflammatory ch anges. ABDOMINAL WALL: Within normal limits. RETROPERITONEUM: There is no lymphadenopathy. BLADDER: No wall thickening or mass. REPRODUCTIVE: Within normal limits. INGUINAL: There is no lymphadenopathy or hernia. MUSCULOSKELETAL: Left hip prosthesis. Bony degenerative changes. CONCLUSION: 1. Gallstones in the gallbladder. No biliary tract obstruction. 2. Probable hepatic cysts. 3. Diverticulosis without inflammatory changes. Otherwise, the bowel gas pattern is unremarkable. Genaro Mckoy MD on September 06, 2016 at 17:53 Board Certified Radiologist. This report was verified electronically.
--- NOTE | 2016-09-07 09:29 | EKG ---
Date Performed: 09/06/2016 Time Performed: 16:34:10 PTAGE: 76 years EKG: Sinus rhythm Left axis deviation rSr'(V1) - probable normal variant Poor R wave progression - probable normal clau iant Borderline ECG PREVIOUS TRACING : 07/28/2016 00.44 DOCTOR: Ankush Monte Interpretating Date/Time 09/07/2016 09:26:42
== END 2016-09-06 18:27 | disposition home or self-care (01) ==
LOC: PHED 15:41 → PHEFT 18:27
DX: R53.1 Weakness (principal); K76.9 Liver disease, unspecified; K57.90 Diverticulosis of intestine, part unspecified, without perforation or abscess without bleeding; K80.80 Other cholelithiasis without obstruction; K59.00 Constipation, unspecified; I25.10 Atherosclerotic heart disease of native coronary artery without angina pectoris; M19.90 Unspecified osteoarthritis, unspecified site; E78.00 Pure hypercholesterolemia, unspecified; K21.9 Gastro-esophageal reflux disease without esophagitis
CPT/HCPCS: 74176; 80053; 81001; 83690; 85025; 85610; 85730; 93005; 96361; 96374; 99285; J2405; J7030

== ENCOUNTER 2017-01-14 12:56 | Emergency (ER) | payer MEDICARE ==
[~2017-01-14] VITALS: Ht 152.4 cm; Wt 59.9 kg
[~2017-01-14 12:56] MED LIST changes: +CART120C PO; -CENTTAB PO; +CO Q100C9 PO; -COQ1200C PO; -DILT-60 PO; -FLUT1SPR5 EACH NARE; +MULTTAB67 PO; -PANT40TA3 PO; +PROT40TA PO
[2017-01-14 13:02] VITALS: BP 135/59; PULSE 87; RESP 18; TEMP 97.5; O2SAT 98
[2017-01-14] MEDS ORDERED: GABA300C5 PO (13:28)
[2017-01-14] MEDS ORDERED: BIOTCAP PO (13:28)
--- NOTE | 2017-01-14 13:31 | PD ---
HPI Chief Complaint: Musculoskeletal Complaint Time Seen by Provider: 13:21 Travel History International Travel<30 days: No Contact w/Intl Traveler<30days: No Traveled to known affect area: No History of Present Illness HPI This 76-year-old female is complaining of pain in her left foot. She says that 2 days ago she dropped a bottle of shampoo on her foot. There is a small cut. His become more swollen and painful over the last few days. She is not on any blood thinners. She is not aware of any fever PFSH Past Medical History Hx Anticoagulant Therapy: Yes (ASA 162MG) Arthritis: Yes Blood Disorders: No Heart Rhythm Problems: Yes Cancer: Yes (SKIN, BASAL CELL CA.) Cardiac Catheterization: Yes (2011) Cardiovascular Problems: Yes (STENT) High Cholesterol: Yes Chemotherapy: No Congestive Heart Failure: No Coronary Artery Disease: Yes Diabetes: No Diminished Hearing: Yes (BILATERAL HEARING AIDS) Endocrine: No GERD: Yes Genitourinary: No Hiatal Hernia: Yes Immune Disorder: No Implanted Vascular Access Dvce: Yes (STENT) Musculoskeletal: Yes (BACK PAIN) Neurologic: No Psychiatric: No Reproductive: No Respiratory: No Immunizations Current: Yes Radiation Therapy: No ?: Not Menopausal: Yes : 5 Para: 4 : 1 Past Surgical History Body Medical Devices: breast impants Coronary Artery Bypass Graft: No Coronary Stent: Yes (X1 MAR 2012) Gynecologic Surgery: Yes ( breast implants d and c) Joint Replacement: Yes (LEFT TOTAL HIP) Mastectomy: Yes (RIGHT BREAST LUMPECTOMY) Tonsillectomy: Yes Other Surgery: Yes (BREAST AUGMENTATION) Social History Alcohol Use: Yes (RARELY) Tobacco Use: No (QUIT 1996) Substance Use: No Allergies-Medications (Allergen,Severity, Reaction): Coded Allergies: No Known Allergies (Verified , 01/14/17) Reported Meds & Prescriptions Reported Meds & Active Scripts Active Reported Gabapentin 300 Mg Cap 300 Mg PO HS Biotin 5 Mg Cap Unknown Dose PO Co Q 10 (Coenzyme Q10 (Ubidecarenone)) 100 Mg Cap 200 Mg PO DAILY Multiple Vitamin 1 Tab 1 Tab PO DAILY Cartia Xt (Diltiazem ER 24 HR) 120 Mg Caper 120 Mg PO DAILY Protonix (Pantoprazole Sodium) 40 Mg Tab 40 Mg PO DAILY Niacin 500 Mg Tab 200 Mg PO DAILY Atorvastatin (Atorvastatin Calcium) 40 Mg Tab 40 Mg PO HS Aspirin Adult Low Strength (Aspirin) 81 Mg Tabdr 162 Mg PO DAILY Review of Systems General / Constitutional: No: Fever Eyes: No: Diploplia, Blurred Vision HENT: No: Headaches Cardiovascular: No: Chest Pain or Discomfort, Palpitations Respiratory: No: Cough, Shortness of Breath Gastrointestinal: No: Nausea, Vomiting Genitourinary: No: Urgency Musculoskeletal: Positive: Myalgias, Edema, Pain, No: Arthralgias Physical Exam Narrative GENERAL: Well-developed female SKIN: Focused skin assessment warm/dry. HEAD: Atraumatic. Normocephalic. EYES: Pupils equal and round. No scleral icterus. No injection or drainage. ENT: No nasal bleeding or discharge. Mucous membranes pink and moist. NECK: Trachea midline. No JVD. GASTROINTESTINAL: Abdomen soft, non-tender, nondistended. Hepatic and splenic margins not palpable. MUSCULOSKELETAL: No obvious deformities. No clubbing. No cyanosis. No edema. There is swelling and tenderness on the lateral aspect of the left foot. There is no deformity. There is a small abrasion there is swelling and tenderness of the fifth toe NEUROLOGICAL: Awake and alert. No obvious cranial nerve deficits. Motor grossly within normal limits. Normal speech. PSYCHIATRIC: Appropriate mood and affect; insight and judgment normal. Data Data Last Documented VS Vital Signs Date Time Temp Pulse Resp B/P (MAP) Pulse Ox O2 Delivery O2 Flow Rate FiO2 01/14/17 13:02 97.5 87 18 135/59 (84) 98 Orders Orders Foot, Complete ([id number]) (01/14/17 13:27) Lidocaine 1% Inj (50 Ml) (Xylocaine 1% I (01/14/17 15:00) [facility] Medical Decision Making Medical Screen Exam Complete: Yes Emergency Medical Condition: Yes Medical Record Reviewed: Yes Differential Diagnosis Differential includes fractured foot, contusion Narrative Course X-rays negative for fracture of the foot. There is a fracture of the fifth toe which is slightly displaced. I have asked the nurse practitioner to attempt a reduction. There is no fracture of the foot and the patient is stable for discharge. Diagnosis Primary Impression: Contusion of foot Qualified Codes: S90.32XA - Contusion of left foot, initial encounter Additional Impression: Fracture of fifth toe, left, closed Qualified Codes: S92.502A - Displaced unspecified fracture of left lesser toe( s), initial encounter for closed fracture Disposition: 01 DISCHARGE HOME Condition: Stable Reynaldo Guajardo MD Jan 14, 2017 13:31
--- NOTE | 2017-01-14 14:40 | RADRPT ---
EXAM DATE/TIME: 01/14/2017 14:28 [facility] COMPARISON: No previous studies available for comparison. INDICATIONS : Bottle dropped on left foot, has pain, swelling MEDICAL HISTORY : None. SURGICAL HISTORY : cardiac stent ENCOUNTER: Initial ACUITY: 4 - 6 days PAIN SCORE: 10/10 LOCATION: Left foot FINDINGS: There is a moderately displaced transverse fracture involving the distal metaphyseal region of the fi fth toe proximal phalanx with slightly greater than one half shaft width lateral displacement of the minor distal fragment area the bony elements appear otherwise intact with note of fairly severe valgu s deformity at the medial metatarsophalangeal joints. CONCLUSION: Fifth toe fracture. Eric Vasquez MD on January 14, 2017 at 14:38 Board Certified Radiologist. This report was verified electronically.
[2017-01-14] MEDS ORDERED: LIDOCAINE HCL 1% 50 ML VIAL INFIL ONE (15:00)
--- NOTE | 2017-01-14 15:30 | PD ---
Physical Exam Time Seen by Provider: 15:27 Data Data Last Documented VS Vital Signs Date Time Temp Pulse Resp B/P (MAP) Pulse Ox O2 Delivery O2 Flow Rate FiO2 01/14/17 13:02 97.5 87 18 135/59 (84) 98 Orders Orders Foot, Complete ([id number]) (01/14/17 13:27) Lidocaine 1% Inj (50 Ml) (Xylocaine 1% I (01/14/17 15:00) MDM Medical Record Reviewed: Yes Supervised Visit with SHMUEL: Yes Narrative Course I was asked by Dr. Dinh to perform a reduction on this patient. Please see his note for further details. Procedures Procedure Narrative Reduction: A digital block was performed using 1% lidocaine. After adequate anesthesia, traction was held on the left fifth toe while gentle countertraction was placed. The distal segment was pushed medially. There was obvious decrease in angulation. Patient tolerated procedure well. Diagnosis Primary Impression: Contusion of foot Qualified Codes: S90.32XA - Contusion of left foot, initial encounter Additional Impression: Fracture of fifth toe, left, closed Qualified Codes: S92.502A - Displaced unspecified fracture of left lesser toe( s), initial encounter for closed fracture Referrals: Lay Gibson MD (PCP) Patient Instructions: General Instructions Departure Forms: Tests/Procedures Disposition: 01 DISCHARGE HOME Condition: Stable Tatiana Bennett Jan 14, 2017 15:30
[2017-01-14 15:47] VITALS: BP 117/56; PULSE 69; RESP 18; O2SAT 97
== END 2017-01-14 15:57 | disposition home or self-care (01) ==
LOC: PHED 12:56
DX: S92.502A Displaced unspecified fracture of left lesser toe(s), initial encounter for closed fracture (principal); I25.10 Atherosclerotic heart disease of native coronary artery without angina pectoris; Z79.82 Long term (current) use of aspirin; W20.8XXA Other cause of strike by thrown, projected or falling object, initial encounter
CPT/HCPCS: 28515; 73630

== ENCOUNTER → 2017-01-30 | Outpatient (CLI) | payer MEDICARE ==
[~2017-01-30] MED LIST changes: +BIOTCAP PO; +GABA300C5 PO
[2017-01-30 16:01] LABS: ANION GAP 4 MEQ/L (5-15); AST (GOT) 19 U/L (15-37); BICARBONATE 30.1 MEQ/L (21.0-32.0); BLOOD UREA NITROGEN 12 MG/DL (7-18); CHLORIDE 105 MEQ/L (98-107); GLOMERULAR FILTRATION RATE 74 ML/MIN (>89); GLUCOSE,FASTING 96 MG/DL (74-99); POTASSIUM 4.5 MEQ/L (3.5-5.1); SODIUM (NA) 139 MEQ/L (136-145)
[2017-01-30 16:04] LABS: ALKALINE PHOSPHATASE 89 U/L (45-117); ALT (GPT) 26 U/L (10-53); LDL CHOLESTEROL 71 MG/DL (0-99); TOTAL BILIRUBIN ADULT 0.4 MG/DL (0.2-1.0)
[2017-01-30 16:10] LABS: CREATINE KINASE 75 U/L (26-192)
== END ==
LOC: PLAB 11:26
PROVIDERS: ATTEND Internal Medicine Interventional Cardiology
DX: E78.2 Mixed hyperlipidemia (principal); Z79.899 Other long term (current) drug therapy
CPT/HCPCS: 36415; 80053; 80061; 82550

== ENCOUNTER 2017-02-14 23:43 | Emergency (ER) | payer MEDICARE ==
[~2017-02-14] VITALS: Ht 157.5 cm; Wt 61.5 kg
[~2017-02-14 23:43] MED LIST changes: -ASPI1TAB91 PO; +ASPI81TA16 PO
[2017-02-14 23:50] VITALS: BP 147/65; PULSE 92; RESP 16; TEMP 97.3; O2SAT 95
[2017-02-14] MEDS ORDERED: CYCL5TAB PO (23:56)
--- NOTE | 2017-02-15 00:35 | PD ---
HPI Chief Complaint: Musculoskeletal Complaint Time Seen by Provider: 00:16 Travel History International Travel<30 days: No Contact w/Intl Traveler<30days: No Traveled to known affect area: No History of Present Illness HPI The patient is a 77-year-old female that complains of muscular pain along with spasms in the right upper thoracic area neck for about 4-5 years. She states every year she gets this around this time of year. In the past she has responded well to Decadron and Norflex. She denies any radiation of the pain. PFSH Past Medical History Hx Anticoagulant Therapy: Yes (ASA 162MG) Arthritis: Yes Blood Disorders: No Heart Rhythm Problems: Yes Cancer: Yes (SKIN, BASAL CELL CA.) Cardiac Catheterization: Yes (2011) Cardiovascular Problems: Yes (STENT) High Cholesterol: Yes Chemotherapy: No Congestive Heart Failure: No Coronary Artery Disease: Yes Diabetes: No Diminished Hearing: Yes (BILATERAL HEARING AIDS) Endocrine: No GERD: Yes Genitourinary: No Hiatal Hernia: Yes Heparin Induced Thrombocytopen: No Immune Disorder: No Implanted Vascular Access Dvce: Yes (STENT) Musculoskeletal: Yes (BACK PAIN) Neurologic: No Psychiatric: No Reproductive: No Respiratory: No Immunizations Current: Yes Radiation Therapy: No Tetanus Vaccination: < 5 Years Influenza Vaccination: Yes ?: Not Menopausal: Yes : 5 Para: 4 : 1 Past Surgical History Body Medical Devices: breast impants Coronary Artery Bypass Graft: No Coronary Stent: Yes (X1 MAR 2012) Gynecologic Surgery: Yes ( breast implants d and c) Joint Replacement: Yes (LEFT TOTAL HIP) Mastectomy: Yes (RIGHT BREAST LUMPECTOMY) Tonsillectomy: Yes Other Surgery: Yes (BREAST AUGMENTATION) Family History Family Myocardial Infarction: No Social History Alcohol Use: Yes (RARELY) Tobacco Use: No (QUIT 1996) Substance Use: No Allergies-Medications (Allergen,Severity, Reaction): Coded Allergies: No Known Allergies (Verified Adverse Reaction, Unknown, 02/15/17) Reported Meds & Prescriptions Reported Meds & Active Scripts Active Reported Flexeril (Cyclobenzaprine HCl) 5 Mg Tab 5 Mg PO TID Gabapentin 300 Mg Cap 300 Mg PO HS Biotin 5 Mg Cap Unknown Dose PO Co Q 10 (Coenzyme Q10 (Ubidecarenone)) 100 Mg Cap 200 Mg PO DAILY Multiple Vitamin 1 Tab 1 Tab PO DAILY Cartia Xt (Diltiazem ER 24 HR) 120 Mg Caper 120 Mg PO DAILY Protonix (Pantoprazole Sodium) 40 Mg Tab 40 Mg PO DAILY Niacin 500 Mg Tab 200 Mg PO DAILY Atorvastatin (Atorvastatin Calcium) 40 Mg Tab 40 Mg PO HS Aspirin Adult Low Strength (Aspirin) 81 Mg Tabdr 162 Mg PO DAILY Review of Systems Except as stated in HPI: all other systems reviewed are Neg Physical Exam Narrative GENERAL: The patient is alert, oriented 3 in moderate apparent distress with her muscular pain on the upper back and neck. Her vital signs are normal. SKIN: Focused skin assessment warm/dry. HEAD: Atraumatic. Normocephalic. EYES: Pupils equal and round. No scleral icterus. No injection or drainage. ENT: No nasal bleeding or discharge. Mucous membranes pink and moist. NECK: Trachea midline. No JVD. CARDIOVASCULAR: Regular rate and rhythm. No murmur appreciated. RESPIRATORY: No accessory muscle use. Clear to auscultation. Breath sounds equal bilaterally. GASTROINTESTINAL: Abdomen soft, non-tender, nondistended. Hepatic and splenic margins not palpable. MUSCULOSKELETAL: No obvious deformities. No clubbing. No cyanosis. No edema. I can reproduce the patient's pain by pressing on the muscles to the right of the neck and upper thoracic spine. There is no spinal tenderness present. The only deformity is some slight scoliosis. There is muscle spasm present. NEUROLOGICAL: Awake and alert. No obvious cranial nerve deficits. Motor grossly within normal limits. Normal speech. PSYCHIATRIC: Appropriate mood and affect; insight and judgment normal. Data Data Last Documented VS Vital Signs Date Time Temp Pulse Resp B/P (MAP) Pulse Ox O2 Delivery O2 Flow Rate FiO2 02/14/17 23:50 97.3 92 16 147/65 (92) 95 MDM Medical Decision Making Medical Screen Exam Complete: Yes Emergency Medical Condition: Yes Medical Record Reviewed: Yes Differential Diagnosis Herniated nucleus pulposus, muscle strain back, cervical radiculopathy Narrative Course Patient appears to have a cervical thoracic muscle strain. She states she can feel the spasm. Plan: The patient be given Decadron and Norflex. She will get Percocet 5 for pain. Diagnosis Primary Impression: Muscle strain of right upper back Additional Instructions: As we discussed, you can try an electric heating pad. Turn it on its lowest setting an interposed a towel between your skin and the pad to avoid moctezuma. He does useful but hot does not help anymore. Med/Other Pt SpecificInfo: Prescription(s) given Scripts Cyclobenzaprine (Flexeril) 10 Mg Tab 10 MG PO TID for Muscle Spasm, #33 TAB 0 Refills Prov: Brandyn Tsai MD 02/15/17 Oxycodone-Acetaminophen (Percocet) 5-325 mg Tab 1 TAB PO Q6H Y for PAIN, #15 TAB 0 Refills Prov: Brandyn Tsai MD 02/15/17 Disposition: 01 DISCHARGE HOME Condition: Stable Brandyn Tsai MD Feb 15, 2017 00:35
[2017-02-15] MEDS ORDERED: CYCL10TA PO (00:40)
[2017-02-15] MEDS ORDERED: PERC5TAB12 PO (00:40)
[2017-02-15] MEDS ORDERED: ORPHENADRINE INJ 60 MG/2 ML AMP IM ONE (00:45)
[2017-02-15] MEDS ORDERED: DEXAMETHASONE SOD PHOS 4 MG/ML VIAL IM ONE (00:45)
== END 2017-02-15 01:03 | disposition home or self-care (01) ==
LOC: PHED 23:43
DX: S29.012A Strain of muscle and tendon of back wall of thorax, initial encounter (principal); X58.XXXA Exposure to other specified factors, initial encounter
CPT/HCPCS: 96372; 99284; J1100; J2360

== ENCOUNTER 2017-04-06 13:53 | Emergency (ER) | payer MEDICARE ==
[~2017-04-06] VITALS: Ht 152.4 cm; Wt 60.0 kg
[~2017-04-06 13:53] MED LIST changes: +CYCL10TA PO; +CYCL5TAB PO; +PERC5TAB12 PO
[2017-04-06 13:59] VITALS: BP 124/69; PULSE 90; RESP 20; TEMP 97.9; O2SAT 95
[2017-04-06] MEDS ORDERED: ORPHENADRINE INJ 60 MG/2 ML AMP IM ONE (14:30)
[2017-04-06] MEDS ORDERED: CYCL10TA PO (14:30)
[2017-04-06] MEDS ORDERED: DEXAMETHASONE SOD PHOS 4 MG/ML VIAL IM ONE (14:30)
[2017-04-06] MEDS ORDERED: PERC5TAB12 PO (14:30)
--- NOTE | 2017-04-06 14:30 | PD ---
HPI Chief Complaint: Back/ Neck Pain or Injury Time Seen by Provider: 14:09 Travel History International Travel<30 days: No Contact w/Intl Traveler<30days: No Traveled to known affect area: No History of Present Illness HPI The patient is a 77-year-old female who presents to the emergency department for 5 days of intermittent back spasms. The patient states her symptoms started 5 days ago, are intermittent, worse with certain movements and positions, and possibly exacerbated after lifting just prior to the . The patient has a history of similar symptoms in the past, was last seen in February for similar symptoms. She has been treated with anti- inflammatories and muscle relaxers in the past with good results. She denies any direct trauma to the back. She denies any radiation of the symptoms down the extremities and denies any muscle spasms of the legs. She denies any known history of hypokalemia. The patient called her primary physician's office, however, they're closed this week, do not reopen until after 's Day. Symptoms are mild to moderate, worse with movement, and slightly alleviated at rest. PFSH Past Medical History Hx Anticoagulant Therapy: Yes (ASA 162MG) Arthritis: Yes Blood Disorders: No Heart Rhythm Problems: Yes Cancer: Yes (SKIN, BASAL CELL CA.) Cardiac Catheterization: Yes (2011) Cardiovascular Problems: Yes (STENT) High Cholesterol: Yes Chemotherapy: No Congestive Heart Failure: No Coronary Artery Disease: Yes Diabetes: No Diminished Hearing: Yes (BILATERAL HEARING AIDS) Endocrine: No GERD: Yes Genitourinary: No Hiatal Hernia: Yes Heparin Induced Thrombocytopen: No Immune Disorder: No Implanted Vascular Access Dvce: Yes (STENT) Musculoskeletal: Yes (BACK PAIN) Neurologic: No Psychiatric: No Reproductive: No Respiratory: No Immunizations Current: Yes Radiation Therapy: No ?: Not Menopausal: Yes : 5 Para: 4 : 1 Past Surgical History Body Medical Devices: breast impants Coronary Artery Bypass Graft: No Coronary Stent: Yes (X1 MAR 2012) Gynecologic Surgery: Yes ( breast implants d and c) Joint Replacement: Yes (LEFT TOTAL HIP) Mastectomy: Yes (RIGHT BREAST LUMPECTOMY) Tonsillectomy: Yes Other Surgery: Yes (BREAST AUGMENTATION) Social History Alcohol Use: Yes (RARELY) Tobacco Use: No (QUIT 1996) Substance Use: No Allergies-Medications (Allergen,Severity, Reaction): Coded Allergies: No Known Allergies (Verified Adverse Reaction, Unknown, 04/06/17) Reported Meds & Prescriptions Reported Meds & Active Scripts Active Percocet (Oxycodone-Acetaminophen) 5-325 mg Tab 1 Tab PO Q6H PRN Flexeril (Cyclobenzaprine HCl) 10 Mg Tab 10 Mg PO TID 10 Days Reported Flexeril (Cyclobenzaprine HCl) 5 Mg Tab 5 Mg PO TID Gabapentin 300 Mg Cap 300 Mg PO BID Biotin 5 Mg Cap Unknown Dose PO Co Q 10 (Coenzyme Q10 (Ubidecarenone)) 100 Mg Cap 200 Mg PO DAILY Multiple Vitamin 1 Tab 1 Tab PO DAILY Cartia Xt (Diltiazem ER 24 HR) 120 Mg Caper 120 Mg PO DAILY Protonix (Pantoprazole Sodium) 40 Mg Tab 40 Mg PO DAILY Niacin 500 Mg Tab 200 Mg PO DAILY Atorvastatin (Atorvastatin Calcium) 40 Mg Tab 40 Mg PO HS Aspirin Adult Low Strength (Aspirin) 81 Mg Tabdr 162 Mg PO DAILY Review of Systems Except as stated in HPI: all other systems reviewed are Neg Cardiovascular: No: Chest Pain or Discomfort Respiratory: No: Shortness of Breath Gastrointestinal: No: Nausea, Vomiting, Abdominal Pain Musculoskeletal: Positive: Pain, Other (back spasms) Neurologic: No: Paresthesia, Sensory Disturbance Physical Exam Narrative GENERAL: Awake, alert, pleasant 77-year-old female who appears her stated age and is in no acute respiratory distress. SKIN: Focused skin assessment warm/dry. HEAD: Atraumatic. Normocephalic. EYES: No injection or drainage. ENT: No nasal bleeding or discharge. Mucous membranes pink and moist. NECK: Trachea midline. No JVD. CARDIOVASCULAR: Regular rate and rhythm. No murmur appreciated. RESPIRATORY: No accessory muscle use. Clear to auscultation. Breath sounds equal bilaterally. GASTROINTESTINAL: Abdomen soft, non-tender, nondistended. No rebound tenderness. Back: Mild tenderness of the paravertebral muscles in the rhomboid muscles bilaterally. No CVA tenderness. No tenderness over the thoracic or lumbar vertebrae. MUSCULOSKELETAL: No obvious deformities. No clubbing. No cyanosis. No edema. NEUROLOGICAL: Awake and alert. No obvious cranial nerve deficits. Motor grossly within normal limits. Normal speech. PSYCHIATRIC: Appropriate mood and affect; insight and judgment normal. Data Data Last Documented VS Vital Signs Date Time Temp Pulse Resp B/P (MAP) Pulse Ox O2 Delivery O2 Flow Rate FiO2 04/06/17 13:59 97.9 90 20 124/69 (87) 95 Orders Orders Dexamethasone Inj (Decadron Inj) (04/06/17 14:30) Orphenadrine Inj (Norflex Inj) (04/06/17 14:30) MDM Medical Decision Making Medical Screen Exam Complete: Yes Emergency Medical Condition: Yes Medical Record Reviewed: Yes Differential Diagnosis Differential diagnosis includes muscle spasms, back pain, hypokalemia, hyperkalemia, muscle strain. Narrative Course The patient has had symptomatic relief with medications in the past. Therefore , I reviewed the EMR, she was last seen by Dr. Tsai in February received Decadron and Norflex with good results. The patient was discharged home with Flexeril and Percocet at that time. Therefore, the patient was administered Decadron 8 mg IM and Norflex 60 mg IM. The patient was reevaluated at 2:55 PM, her symptoms have improved. She will be discharged home on the same medications as well signed, is advised to follow-up with her primary physician. Diagnosis Primary Impression: Muscle spasm of back Patient Instructions: General Instructions Additional Instructions: Medications as directed. Follow-up with your primary physician. Return if symptoms worsen or progress. Ice and/or heat to the affected area. Stretching exercises. Med/Other Pt SpecificInfo: Prescription(s) given Scripts Oxycodone-Acetaminophen (Percocet) 5-325 mg Tab 1 TAB PO Q6H Y for PAIN, #15 TAB 0 Refills Prov: Sly Tobias MD 04/06/17 Cyclobenzaprine (Flexeril) 10 Mg Tab 10 MG PO TID for Muscle Spasm for 10 Days, #30 TAB 0 Refills Prov: Sly Tobias MD 04/06/17 Disposition: DISCHARGE HOME Condition: Stable Sly Tobias MD Apr 06, 2017 14:30
== END 2017-04-06 15:18 | disposition home or self-care (01) ==
LOC: PHED 13:53
DX: M62.830 Muscle spasm of back (principal); E78.00 Pure hypercholesterolemia, unspecified; I25.10 Atherosclerotic heart disease of native coronary artery without angina pectoris; K21.9 Gastro-esophageal reflux disease without esophagitis; Z79.82 Long term (current) use of aspirin; Z85.828 Personal history of other malignant neoplasm of skin; Z87.891 Personal history of nicotine dependence
CPT/HCPCS: 96372; 99284; J1100; J2360

== ENCOUNTER 2017-04-26 00:04 | Emergency (ER) | payer MEDICARE ==
[~2017-04-26] VITALS: Ht 154.9 cm; Wt 60.9 kg
[2017-04-26 00:08] VITALS: BP 141/63; PULSE 82; RESP 18; TEMP 97.2
[2017-04-26] MEDS ORDERED: TETANUS/DIPHTHERIA TOXOID ADULT 0.5 ML VIAL IM ONE (00:30)
[2017-04-26] MEDS ORDERED: BACT800T5 PO (00:33)
--- NOTE | 2017-04-26 00:34 | PD ---
HPI Chief Complaint: Laceration/Skin Injury Time Seen by Provider: 00:15 Travel History International Travel<30 days: No Contact w/Intl Traveler<30days: No Traveled to known affect area: No History of Present Illness HPI The patient is a 77-year-old female who presents to the emergency department for a wound on the left shoulder. The patient states she was coming out of her shed 2 nights ago when she tripped and fell into a hernández. The patient states she suffered an abrasion to the anterior aspect of the left shoulder. She then developed some bruising over the affected area. She does note there is an abrasion with some loose skin over the affected area which is slightly tender to palpation. She denies any drainage from the affected area but was worried about a secondary infection. She denies any difficulty with extension or abduction of the left shoulder. She cannot recall her last tetanus shot. Symptoms are mild to moderate, exacerbated after falling, and there are no current alleviating factors. PFSH Past Medical History Hx Anticoagulant Therapy: Yes (ASA 162MG) Arthritis: Yes Blood Disorders: No Heart Rhythm Problems: Yes Cancer: Yes (SKIN, BASAL CELL CA.) Cardiac Catheterization: Yes (2011) Cardiovascular Problems: Yes (STENT) High Cholesterol: Yes Chemotherapy: No Congestive Heart Failure: No Coronary Artery Disease: Yes Diabetes: No Diminished Hearing: Yes (BILATERAL HEARING AIDS) Endocrine: No GERD: Yes Genitourinary: No Hiatal Hernia: Yes Heparin Induced Thrombocytopen: No Immune Disorder: No Implanted Vascular Access Dvce: Yes (STENT) Musculoskeletal: Yes (BACK PAIN) Neurologic: No Psychiatric: No Reproductive: No Respiratory: No Immunizations Current: Yes Radiation Therapy: No Influenza Vaccination: Yes Menopausal: Yes : 5 Para: 4 : 1 Past Surgical History Body Medical Devices: breast impants Coronary Artery Bypass Graft: No Coronary Stent: Yes (X1 MAR 2012) Gynecologic Surgery: Yes ( breast implants d and c) Joint Replacement: Yes (LEFT TOTAL HIP) Mastectomy: Yes (RIGHT BREAST LUMPECTOMY) Tonsillectomy: Yes Other Surgery: Yes (BREAST AUGMENTATION) Social History Alcohol Use: Yes (RARELY) Tobacco Use: No (QUIT 1996) Substance Use: No Allergies-Medications (Allergen,Severity, Reaction): Coded Allergies: No Known Allergies (Verified Adverse Reaction, Unknown, 04/26/17) Reported Meds & Prescriptions Reported Meds & Active Scripts Active Percocet (Oxycodone-Acetaminophen) 5-325 mg Tab 1 Tab PO Q6H PRN Flexeril (Cyclobenzaprine HCl) 10 Mg Tab 10 Mg PO TID 10 Days Reported Gabapentin 300 Mg Cap 300 Mg PO BID Co Q 10 (Coenzyme Q10 (Ubidecarenone)) 100 Mg Cap 200 Mg PO DAILY Multiple Vitamin 1 Tab 1 Tab PO DAILY Cartia Xt (Diltiazem ER 24 HR) 120 Mg Caper 120 Mg PO DAILY Protonix (Pantoprazole Sodium) 40 Mg Tab 40 Mg PO DAILY Niacin 500 Mg Tab 200 Mg PO DAILY Atorvastatin (Atorvastatin Calcium) 40 Mg Tab 40 Mg PO HS Aspirin Adult Low Strength (Aspirin) 81 Mg Tabdr 162 Mg PO DAILY Review of Systems General / Constitutional: No: Fever HENT: No: Headaches, Neck Pain Musculoskeletal: No: Limited ROM, Pain Skin: Positive Other (as noted in the history of present illness) Neurologic: No: Paresthesia, Sensory Disturbance Physical Exam Narrative GENERAL: Awake, alert, pleasant 77-year-old female who appears her stated age and is in no acute respiratory distress. SKIN: Focused skin assessment warm/dry. Some ecchymosis noted over the anterior aspect the left shoulder with a small skin tear which measures 3 cm x 0.5 cm. No visible drainage or bleeding. HEAD: Atraumatic. Normocephalic. EYES: Pupils equal and round. No scleral icterus. No injection or drainage. ENT: No nasal bleeding or discharge. Mucous membranes pink and moist. NECK: Trachea midline. No JVD. MUSCULOSKELETAL: Some ecchymosis with a skin tear noted over the anterior left shoulder. The patient is able to extend left shoulder to 90 and is able to abduct to 90. Positive left radial pulse. No tenderness over the left acromioclavicular joint or clavicle. Minimal tenderness of the abrasion. NEUROLOGICAL: Awake and alert. No obvious cranial nerve deficits. Motor grossly within normal limits. Normal speech. Nonfocal. Oriented 4. Follows commands without difficulty. PSYCHIATRIC: Appropriate mood and affect; insight and judgment normal. Data Data Last Documented VS Vital Signs Date Time Temp Pulse Resp B/P (MAP) Pulse Ox O2 Delivery O2 Flow Rate FiO2 04/26/17 00:08 97.2 82 18 141/63 (89) Orders Orders Tetanus/Diphtheria Tox Adult (Tetanus/Di (04/26/17 00:30) Wound Care (04/26/17 00:19) MDM Medical Decision Making Medical Screen Exam Complete: Yes Emergency Medical Condition: Yes Medical Record Reviewed: Yes Differential Diagnosis differential diagnosis includes abrasion, skin tear, laceration, infected wound , acromioclavicular separation, clavicle fracture, shoulder dislocation, shoulder contusion. Narrative Course The patient has full range of motion with extension and abduction of left shoulder, no tenderness of the acromioclavicular joint or clavicle, no indication for acute imaging. The patient's skin tear was cleaned with soap and water, Polysporin and a dressing was applied. The patient will be placed on Bactrim for 7 days to cover for MRSA. The patient's tetanus shot was updated. She is advised to follow-up with her primary physician. Diagnosis Primary Impression: Skin tear of left upper arm without complication Qualified Codes: S41.112A - Laceration without foreign body of left upper arm , initial encounter Patient Instructions: General Instructions Additional Instructions: wound care instructions. Clean the area twice a day with soap and water and apply Polysporin. Bactrim as directed. Follow-up with her primary physician. Return if symptoms worsen or progress. Med/Other Pt SpecificInfo: Prescription(s) given Scripts Sulfamethoxazole-Trimethoprim (Bactrim DS) 800-160 Mg Tab 1 TAB PO BID for Infection, #14 TAB 0 Refills Prov: Sly Tobias MD 04/26/17 Disposition: 01 DISCHARGE HOME Condition: Stable Sly Tobias MD Apr 26, 2017 00:34
== END 2017-04-26 00:56 | disposition home or self-care (01) ==
LOC: PHED 00:04
DX: S41.112A Laceration without foreign body of left upper arm, initial encounter (principal); I25.10 Atherosclerotic heart disease of native coronary artery without angina pectoris; K21.9 Gastro-esophageal reflux disease without esophagitis; E78.00 Pure hypercholesterolemia, unspecified; Z23 Encounter for immunization; Z79.82 Long term (current) use of aspirin; Z85.828 Personal history of other malignant neoplasm of skin; Z87.39 Personal history of other diseases of the musculoskeletal system and connective tissue; W01.198A Fall on same level from slipping, tripping and stumbling with subsequent striking against other object, initial encounter
CPT/HCPCS: 90471; 90714

== ENCOUNTER 2017-05-06 14:47 | Emergency (ER) | payer MEDICARE ==
[~2017-05-06] VITALS: Ht 152.4 cm; Wt 60.0 kg
[~2017-05-06 14:47] MED LIST changes: +BACT800T5 PO; -BIOTCAP PO; -CYCL5TAB PO
[2017-05-06 14:55] VITALS: BP 129/60; PULSE 85; RESP 16; TEMP 97.7; O2SAT 97
--- NOTE | 2017-05-06 14:59 | PD ---
HPI Chief Complaint: Skin Problem Time Seen by Provider: 14:58 Travel History International Travel<30 days: No Contact w/Intl Traveler<30days: No Traveled to known affect area: No History of Present Illness HPI 77-year-old female came to the emergency room transferred from the urgent care for a left leg cellulitis. Patient says that she banged her left lower leg on a ceramic pot while she was walking that made her trip when she fell and injured her left shoulder 2 weeks ago. She says that the shoulder has been healing okay. The left lower extremity immediately swelled up at the point of contact and she developed a hematoma. Patient says she has been icing it but the hematoma has been getting worse and for past about one week the skin has started to turn red and warm and she has been feeling pins and needle sensation inside. Last night the pain was worse and hence he decided to come to the urgent care this morning. Vital signs are stable. No history of fever or chills. Patient is not a diabetic. She does take 2 baby aspirins every day since she has history of coronary artery disease and a stent. [facility] Past Medical History Narrative Medical List of her past medical, surgical, social and family history is reviewed from the nursing note. Hx Anticoagulant Therapy: Yes (ASA 162MG) Arthritis: Yes Blood Disorders: No Heart Rhythm Problems: Yes Cancer: Yes (SKIN, BASAL CELL CA.) Cardiac Catheterization: Yes (2011) Cardiovascular Problems: Yes (STENT) High Cholesterol: Yes Chemotherapy: No Congestive Heart Failure: No Coronary Artery Disease: Yes Diabetes: No Diminished Hearing: Yes (BILATERAL HEARING AIDS) Endocrine: No GERD: Yes Genitourinary: No Hiatal Hernia: Yes Heparin Induced Thrombocytopen: No Immune Disorder: No Implanted Vascular Access Dvce: Yes (STENT) Musculoskeletal: Yes (BACK PAIN) Neurologic: No Psychiatric: No Reproductive: No Respiratory: No Immunizations Current: Yes Radiation Therapy: No Menopausal: Yes : 5 Para: 4 : 1 Past Surgical History Body Medical Devices: breast impants Coronary Artery Bypass Graft: No Coronary Stent: Yes (X1 MAR 2012) Gynecologic Surgery: Yes ( breast implants d and c) Joint Replacement: Yes (LEFT TOTAL HIP) Mastectomy: Yes (RIGHT BREAST LUMPECTOMY) Tonsillectomy: Yes Other Surgery: Yes (BREAST AUGMENTATION) Social History Alcohol Use: Yes (RARELY) Tobacco Use: No (QUIT 1996) Substance Use: No Allergies-Medications (Allergen,Severity, Reaction): Coded Allergies: No Known Allergies (Verified Adverse Reaction, Unknown, 05/08/17) Comments No known drug allergies. Reported Meds & Prescriptions Reported Meds & Active Scripts Active Bactrim DS (Sulfamethoxazole-Trimethoprim) 800-160 Mg Tab 1 Tab PO BID 10 Days Percocet (Oxycodone-Acetaminophen) 5-325 mg Tab 1 Tab PO Q6H PRN Flexeril (Cyclobenzaprine HCl) 10 Mg Tab 10 Mg PO TID 10 Days Reported Gabapentin 300 Mg Cap 300 Mg PO BID Co Q 10 (Coenzyme Q10 (Ubidecarenone)) 100 Mg Cap 200 Mg PO DAILY Multiple Vitamin 1 Tab 1 Tab PO DAILY Cartia Xt (Diltiazem ER 24 HR) 120 Mg Caper 120 Mg PO DAILY Protonix (Pantoprazole Sodium) 40 Mg Tab 40 Mg PO DAILY Niacin 500 Mg Tab 200 Mg PO DAILY Atorvastatin (Atorvastatin Calcium) 40 Mg Tab 40 Mg PO HS Aspirin Adult Low Strength (Aspirin) 81 Mg Tabdr 162 Mg PO DAILY Narrative Medication List of her home medications reviewed from the nursing note. Review of Systems Except as stated in HPI: all other systems reviewed are Neg Physical Exam Narrative GENERAL: Awake, alert, mild distress SKIN: Focused skin assessment warm/dry. The left lower leg in the lower one third anteriorly has a fluctuant swelling that's about 3 cm diameter. This is tender to touch. The skin above is erythematous and warm to touch. The foot distally is swollen and edematous. HEAD: Atraumatic. Normocephalic. EYES: Pupils equal and round. No scleral icterus. No injection or drainage. ENT: No nasal bleeding or discharge. Mucous membranes pink and moist. NECK: Trachea midline. No JVD. CARDIOVASCULAR: Regular rate and rhythm. No murmur appreciated. RESPIRATORY: No accessory muscle use. Clear to auscultation. Breath sounds equal bilaterally. GASTROINTESTINAL: Abdomen soft, non-tender, nondistended. Hepatic and splenic margins not palpable. MUSCULOSKELETAL: No obvious deformities. No clubbing. No cyanosis. No edema. NEUROLOGICAL: Awake and alert. No obvious cranial nerve deficits. Motor grossly within normal limits. Normal speech. PSYCHIATRIC: Appropriate mood and affect; insight and judgment normal. Data Data Last Documented VS Vital Signs Date Time Temp Pulse Resp B/P (MAP) Pulse Ox O2 Delivery O2 Flow Rate FiO2 05/06/17 16:18 18 05/06/17 14:55 97.7 85 129/60 (83) 97 Orders Orders Basic Metabolic Panel (Bmp) (05/06/17 15:07) Complete Blood Count With Diff (05/06/17 15:07) Blood Culture (05/06/17 15:07) Wound Culture And Gram Stain (05/06/17 15:07) Acetaminophen (Tylenol) (05/06/17 15:15) Lidocai-Epi 1%-1:100,000 Inj (Xylocaine- (05/06/17 15:15) Sulfamet-Trimeth Ds 800-160 Mg (Bactrim (05/06/17 15:15) Ed Discharge Order (05/06/17 16:18) Labs Laboratory Tests Test 05/06/17 15:20 White Blood Count 6.5 TH/MM3 Red Blood Count 4.33 MIL/MM3 Hemoglobin 12.8 GM/DL Hematocrit 38.7 % Mean Corpuscular Volume 89.2 FL Mean Corpuscular Hemoglobin 29.6 PG Mean Corpuscular Hemoglobin Concent 33.2 % Red Cell Distribution Width 13.6 % Platelet Count 255 TH/MM3 Mean Platelet Volume 7.2 FL Neutrophils (%) (Auto) 62.0 % Lymphocytes (%) (Auto) 26.6 % Monocytes (%) (Auto) 8.5 % Eosinophils (%) (Auto) 1.8 % Basophils (%) (Auto) 1.1 % Neutrophils # (Auto) 4.0 TH/MM3 Lymphocytes # (Auto) 1.7 TH/MM3 Monocytes # (Auto) 0.6 TH/MM3 Eosinophils # (Auto) 0.1 TH/MM3 Basophils # (Auto) 0.1 TH/MM3 CBC Comment DIFF FINAL Differential Comment Blood Urea Nitrogen 12 MG/DL Creatinine 0.65 MG/DL Random Glucose 95 MG/DL Calcium Level 8.8 MG/DL Sodium Level 139 MEQ/L Potassium Level 3.9 MEQ/L Chloride Level 104 MEQ/L Carbon Dioxide Level 28.4 MEQ/L Anion Gap 7 MEQ/L Estimat Glomerular Filtration Rate 88 ML/MIN MDM Medical Decision Making Medical Screen Exam Complete: Yes Emergency Medical Condition: Yes Medical Record Reviewed: Yes Differential Diagnosis Infected hematoma, abscess, cellulitis Narrative Course 4:13 PM patient was given by mouth Bactrim and Tylenol. I did a bedside ultrasound to look at the collection underneath. Please refer to my procedure note. I explained to her that the cavity needed to be opened up by I&D. Patient understood and gave me verbal consent for the I&D. Patient tolerated the procedure well. Please refer to my procedure note. I've given her clear instructions to return back in 48 hours for packing removal or sooner if condition worsens. She will be discharged home on prescription. Blood test results of back and within acceptable limits. There is a blood culture and wound culture pending. Procedures Procedure Narrative Emergency department soft-tissue/musculoskeletal ultrasound was performed with patient consent. Linear probe was used in the transverse and sagittal views in the area of interest without evidence of soft-tissue foreign bodies. However there is a heterogeneous fluid collection that's of substantial volume. I&D: The lower leg was cleaned with Betadine 3. 5 mL of 1% lidocaine with epinephrine was infiltrated. A cruciate incision was made over the point of maximum fluctuance. Moderate quantity of clot was evacuated/expressed. The wound cavity was packed with half-inch gauze strip of iodoform. Nurse that for the dressing on. Patient tolerated the procedure well. EKG Prior to Arrival: No Diagnosis Primary Impression: Cellulitis Qualified Codes: L03.116 - Cellulitis of left lower limb Additional Impression: Infection of wound hematoma Referrals: Primary Care Physician 3 days Additional Instructions: Return to the ER in 48 hours to have the packing taken out and wound reexamined. Take the medication as per the prescription direction. Keep the leg elevated above the heart level to keep the swelling down. Keep the wound clean and dry for next 48 hours. Return to ER sooner if condition worsens like pain out of proportion, fever or chills or any other concerns. Med/Other Pt SpecificInfo: Prescription(s) given Scripts Sulfamethoxazole-Trimethoprim (Bactrim DS) 800-160 Mg Tab 1 TAB PO BID for Infection for 10 Days, #20 TAB 0 Refills Prov: Selvin Barr MD 05/06/17 Disposition: 01 DISCHARGE HOME Condition: Stable Selvin Barr MD May 06, 2017 14:59
[2017-05-06] MEDS ORDERED: ACETAMINOPHEN 325 MG TAB PO ONE (15:15)
[2017-05-06] MEDS ORDERED: SULFAMETHOXAZOLE-TRIMETHOPRIM DS 800-160 MG TAB PO ONE (15:15)
[2017-05-06] MEDS ORDERED: LIDOCAINE 1%/EPINEPHrine 1:100,000 SOLN 20 ML VIAL INFIL ONE (15:15)
[2017-05-06 15:47] LABS: BASOPHIL # 0.1 TH/MM3 (0-0.2); BASOPHIL % 1.1 % (0.0-2.0); EOSINOPHIL # 0.1 TH/MM3 (0-0.4); EOSINOPHIL % 1.8 % (0.0-4.0); HEMATOCRIT 38.7 % (35.0-46.0); HEMOGLOBIN 12.8 GM/DL (11.6-15.3); LYMPH % 26.6 % (9.0-44.0); LYMPHOCYTE # 1.7 TH/MM3 (1.0-4.8); MEAN CELL VOLUME 89.2 FL (80.0-100.0); MEAN CORPUSCULAR HEMOGLOBIN 29.6 PG (27.0-34.0); MEAN CORPUSCULAR HGB CONC 33.2 % (32.0-36.0); MEAN PLATELET VOLUME 7.2 FL (7.0-11.0); MONO % 8.5 % (0.0-8.0); MONOCYTE # 0.6 TH/MM3 (0-0.9); PLATELET COUNT 255 TH/MM3 (150-450); RED BLOOD COUNT 4.33 MIL/MM3 (4.00-5.30); RED CELL DISTRIBUTION WIDTH 13.6 % (11.6-17.2); WHITE BLOOD COUNT 6.5 TH/MM3 (4.0-11.0)
[2017-05-06 16:04] LABS: CALCIUM 8.8 MG/DL (8.5-10.1)
[2017-05-06 16:05] LABS: BICARBONATE 28.4 MEQ/L (21.0-32.0)
[2017-05-06 16:08] LABS: CREATININE 0.65 MG/DL (0.50-1.00)
[2017-05-06 16:18] VITALS: RESP 18
[2017-05-06] MEDS ORDERED: BACT800T5 PO (16:18)
== END 2017-05-06 16:25 | disposition home or self-care (01) ==
LOC: PHED 14:47
DX: L03.116 Cellulitis of left lower limb (principal); L08.9 Local infection of the skin and subcutaneous tissue, unspecified; S80.12XA Contusion of left lower leg, initial encounter; E78.00 Pure hypercholesterolemia, unspecified; I25.10 Atherosclerotic heart disease of native coronary artery without angina pectoris; K21.9 Gastro-esophageal reflux disease without esophagitis; W22.09XA Striking against other stationary object, initial encounter; Z79.82 Long term (current) use of aspirin; Z95.5 Presence of coronary angioplasty implant and graft
CPT/HCPCS: 10061; 10140; 80048; 85025; 87040; 87070; 87205

== ENCOUNTER 2017-05-08 15:54 | Emergency (ER) | payer MEDICARE ==
[~2017-05-08] VITALS: Ht 152.4 cm; Wt 60.6 kg
[2017-05-08 16:25] VITALS: BP 121/56; PULSE 80; RESP 16; TEMP 97.9; O2SAT 94
--- NOTE | 2017-05-08 17:30 | PD ---
HPI Chief Complaint: Wound/Suture/Staple Re-Check Time Seen by Provider: 17:20 Travel History International Travel<30 days: No Contact w/Intl Traveler<30days: No Traveled to known affect area: No History of Present Illness HPI 77-year-old female presents for wound recheck. She was seen here 2 days ago for evaluation of a hematoma on the left lower leg. She underwent incision and drainage of the hematoma and she was discharged Bactrim for associated cellulitis. She presents today for wound recheck and packing removal. She reports decreased swelling and pain. Pain is mild, aching, worse with palpation. Denies fevers or chills. No other complaints at this time. PFSH Past Medical History Hx Anticoagulant Therapy: Yes (ASA 162MG) Arthritis: Yes Blood Disorders: No Heart Rhythm Problems: Yes Cancer: Yes (SKIN, BASAL CELL CA.) Cardiac Catheterization: Yes (2011) Cardiovascular Problems: Yes (STENT) High Cholesterol: Yes Chemotherapy: No Congestive Heart Failure: No Coronary Artery Disease: Yes Diabetes: No Diminished Hearing: Yes (BILATERAL HEARING AIDS) Endocrine: No GERD: Yes Genitourinary: No Hiatal Hernia: Yes Heparin Induced Thrombocytopen: No Immune Disorder: No Implanted Vascular Access Dvce: Yes (STENT) Musculoskeletal: Yes (BACK PAIN) Neurologic: No Psychiatric: No Reproductive: No Respiratory: No Immunizations Current: Yes Radiation Therapy: No ?: Not Menopausal: Yes : 5 Para: 4 : 1 Past Surgical History Body Medical Devices: breast impants Coronary Artery Bypass Graft: No Coronary Stent: Yes (X1 MAR 2012) Gynecologic Surgery: Yes ( breast implants d and c) Joint Replacement: Yes (LEFT TOTAL HIP) Mastectomy: Yes (RIGHT BREAST LUMPECTOMY) Tonsillectomy: Yes Other Surgery: Yes (BREAST AUGMENTATION) Family History Family Myocardial Infarction: No Social History Alcohol Use: No (RARELY) Tobacco Use: No (QUIT 1996) Substance Use: No Allergies-Medications (Allergen,Severity, Reaction): Coded Allergies: No Known Allergies (Verified Adverse Reaction, Unknown, 05/08/17) Reported Meds & Prescriptions Reported Meds & Active Scripts Active Bactrim DS (Sulfamethoxazole-Trimethoprim) 800-160 Mg Tab 1 Tab PO BID 10 Days Percocet (Oxycodone-Acetaminophen) 5-325 mg Tab 1 Tab PO Q6H PRN Flexeril (Cyclobenzaprine HCl) 10 Mg Tab 10 Mg PO TID 10 Days Reported Gabapentin 300 Mg Cap 300 Mg PO BID Co Q 10 (Coenzyme Q10 (Ubidecarenone)) 100 Mg Cap 200 Mg PO DAILY Multiple Vitamin 1 Tab 1 Tab PO DAILY Cartia Xt (Diltiazem ER 24 HR) 120 Mg Caper 120 Mg PO DAILY Protonix (Pantoprazole Sodium) 40 Mg Tab 40 Mg PO DAILY Niacin 500 Mg Tab 200 Mg PO DAILY Atorvastatin (Atorvastatin Calcium) 40 Mg Tab 40 Mg PO HS Aspirin Adult Low Strength (Aspirin) 81 Mg Tabdr 162 Mg PO DAILY Review of Systems General / Constitutional: No: Fever, Chills Skin: Positive Other (positive for redness, pain, swelling, packing) Physical Exam Narrative GENERAL: Well-developed well-nourished female in no acute distress SKIN: Warm and dry. Examination of the left lower extremity reveals a cruciate incision with packing in place. There is mild surrounding erythematous skin. No induration or fluctuance or foul-smelling or purulent drainage. CARDIOVASCULAR: Regular rate and rhythm. No murmur appreciated. RESPIRATORY: No accessory muscle use. Clear to auscultation. Breath sounds equal bilaterally. MUSCULOSKELETAL: Skin as noted above. Distal pulses are intact. NEUROLOGICAL: Awake and alert. No obvious cranial nerve deficits. Motor grossly within normal limits. Normal speech. Data Data Last Documented VS Vital Signs Date Time Temp Pulse Resp B/P (MAP) Pulse Ox O2 Delivery O2 Flow Rate FiO2 05/08/17 16:25 97.9 80 16 121/56 (77) 94 MDM Medical Decision Making Medical Screen Exam Complete: Yes Emergency Medical Condition: Yes Medical Record Reviewed: Yes Differential Diagnosis Packing removal, wound recheck, cellulitis Narrative Course The packing was removed and new bandages were placed. Wound cultures have had no growth to date. The patient is encouraged to continue on the Bactrim. Discussed signs and symptoms that would warrant returning to the emergency room. Stable for discharge. Diagnosis Primary Impression: Encounter for wound re-check Additional Instructions: Continue Bactrim as prescribed. Wash the wound daily with soap and water and apply antibiotic cream and clean bandages. Return for evidence worsening infection such as increasing redness, red streaks up the leg, fevers. Med/Other Pt SpecificInfo: Wound Care Disposition: DISCHARGE HOME Condition: Stable Kevin Matthews May 08, 2017 17:29
== END 2017-05-08 17:56 | disposition home or self-care (01) ==
LOC: PHEFT 15:54
DX: Z48.00 Encounter for change or removal of nonsurgical wound dressing (principal)
CPT/HCPCS: 99281

== ENCOUNTER → 2017-08-02 | Outpatient (CLI) | payer MEDICARE ==
[2017-08-02 14:15] LABS: ALBUMIN 3.5 GM/DL (3.4-5.0); DIRECT BILIRUBIN ADULT 0.1 MG/DL (0.0-0.2)
[2017-08-02 14:18] LABS: CHOLESTEROL/ HDL RATIO 3.56 RATIO; HDL CHOLESTEROL 44.1 MG/DL (40.0-60.0); INDIRECT BILIRUBIN 0.3 MG/DL (0.0-0.8); TOTAL BILIRUBIN ADULT 0.4 MG/DL (0.2-1.0); TOTAL PROTEIN 6.9 GM/DL (6.4-8.2)
== END ==
LOC: PLAB 10:39
PROVIDERS: ATTEND Internal Medicine Interventional Cardiology
DX: E78.2 Mixed hyperlipidemia (principal); Z79.899 Other long term (current) drug therapy
CPT/HCPCS: 36415; 80061; 80076